=== PATIENT | male | born 1965 ===

== ENCOUNTER 2020-08-18 08:26 | Inpatient (IN) | payer BC ==
[2020-08-18] MEDS ORDERED: Acetaminophen 500 MG Tab PO ONE (08:37)
[2020-08-18] MEDS ORDERED: Lactated Ringers 1,000 ML IV ONE (08:54)
[2020-08-18] MEDS ORDERED: Sodium Chloride 0.9% 10 ML Syringe FLUSH PRN (08:54)
[2020-08-18] MEDS ORDERED: Sodium Chloride 0.9% 2.5 ML Syringe FLUSH PRN (08:54)
[2020-08-18 09:20] LABS: BLOOD UREA NITROGEN,BUN 33 mg/dL (7.0-18.0); CARBON DIOXIDE,CO2 22.5 mmol/L (21.0-32.0); CHLORIDE,CL 102 mmol/L (98-107); GLUCOSE RANDOM 128 mg/dL (74-106); POTASSIUM,K 3.7 mmol/L (3.5-5.1); SODIUM,NA 137 mmol/L (136-148)
--- NOTE | 2020-08-18 09:29 | CR ---
INDICATION: Fever, hypoxia. COMPARISON: none TECHNIQUE: Portable chest performed at 9:13 a.m. FINDINGS: The lungs are clear. The heart, mediastinum and pulmonary vessels are of normal size. There is no evidence of pleural fluid. IMPRESSION: No pneumonia. Dictated by Liam Jose MD @ Aug 18 2020 9:27AM Signed by Dr. Liam Jose @ Aug 18 2020 9:28AM
[2020-08-18 10:12] LABS: CORONAVIRUS COVID-19 NAA NEGATIVE (NEGATIVE)
[2020-08-18] MEDS ORDERED: Piperacillin/Tazobactam 4.5 GM in Sodium Chloride 0.9% 100 ML IV ONE (10:40)
[2020-08-18] MEDS ORDERED: VANCOmycin 2 GM/400 ML 2 GM in Premix Bag 1 BAG IV STA (10:40)
[2020-08-18] MEDS ORDERED: Sodium Chloride 0.9% 1,000 ML IV ONE (10:40)
[2020-08-18 10:52] LABS: INFLUENZA A NAA NEGATIVE (NEGATIVE); INFLUENZA B NAA NEGATIVE (NEGATIVE)
[2020-08-18] MEDS ORDERED: Iopamidol 755 MG/ML 500 ML Multipack Bottle IVPUSH STA (12:25)
--- NOTE | 2020-08-18 14:28 | CT ---
INDICATION: Chest pain. Elevated D-dimer. TECHNIQUE: CT chest PE was acquired with 100 cc Isovue 370 IV contrast. COMPARISON: None. FINDINGS: Heart and vasculature: Contrast enhancement of the pulmonary arterial tree is suboptimal and essentially nondiagnostic for pulmonary embolism, this may be the result of body habitus. No obvious large or central pulmonary embolism. Heart size is normal. Thoracic aorta and pulmonary artery are normal in caliber. Lungs and pleural: No suspicious nodules or infiltrates. No pleural effusions, pleural thickening, or pneumothorax. Lymph nodes/mediastinum: No mediastinal, hilar, or axillary adenopathy. Thyroid gland is normal. Chest wall: No masses. Upper abdomen: Normal. Bones: Unremarkable for age. IMPRESSION: The exam is nondiagnostic for pulmonary embolism secondary to a poor contrast bolus in the pulmonary arterial tree. No apparent larger central pulmonary embolism. Otherwise unremarkable CT of the chest. Lungs are clear. No other finding to explain chest pain. Please note that all CT scans at this facility use dose modulation, iterative reconstruction, and/or weight-based dosing when appropriate to reduce radiation dose to as low as reasonably achievable. Dictated by Modesto Liz MD @ Aug 18 2020 2:13PM Signed by Dr. Modesto Liz @ Aug 18 2020 2:25PM
[2020-08-18] MEDS ORDERED: Morphine 10 MG/ML Syringe IVPUSH PRN (15:27)
[2020-08-18] MEDS ORDERED: Albuterol/Ipratropium 3.0-0.5 MG/3 ML Neb Soln NEB PRN (15:27)
[2020-08-18] MEDS ORDERED: Ondansetron 4 MG/2 ML SDV IVPUSH PRN (15:27)
--- NOTE | 2020-08-18 15:52 | EDM.PDOC ---
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 He states that for the last 2 days he has been experiencing chills and shakes lasting approximately 30 minutes and then when it eases up that he starts to get sweats. He states he is feeling fatigued. He states that he has had 4 episodes of vomiting which was nonbloody nonbilious but denies any abdominal pain, back pain. He states that he also has a mild headache which is diffuse not associated with any blurry vision, diplopia, numbness, tingling, weakness. He states that he is also had significant amount of muscle cramps. He rates his headache as 2 out of 10 without any radiation. He denies any aggravating or relieving factors. He denies any sick contacts. He states that he took DayQuil yesterday and Tylenol last night but he still feels feverish and cold. He denies any cough, runny nose, congestion, shortness of breath, chest pain, abdominal pain. He states that he does have some occasional dysuria and he has had a change in color of his urine to dark yellow. He denies any decreased urination. He denies any Covid exposure but has not had his vaccine yet. He states that he is mainly concerned because he had similar symptoms in 2004 when he was diagnosed with Petra syndrome where he ended up with rhabdomyolysis and CKD/end-stage renal disease requiring temporary dialysis. He denies any history of CAD or CHF. He states that he does not have any lower extremity edema. He states that he did have a surgery in May for a shoulder surgery but denies any recent travel or prior history of DVT or PE. REVIEW OF SYSTEMS: Constitutional: Positive for fever and chills Eyes: Denies eye pain Ears, Nose, Mouth, & Throat: Denies earache, runny nose, sore throat Cardiovascular: Denies chest pain Respiratory: Denies shortness of breath Gastrointestinal: Positive for vomiting. Denies nausea, diarrhea, hematochezia, melena, hematemesis, bilious emesis, abdominal pain Genitourinary: Positive for dysuria. Denies hematuria, penile discharge, testicular pain Skin:Denies a rash MSK: Denies joint pain Neurological: Positive for headache. Denies blurred vision, double vision, numbness, tingling, weakness Psychiatric: Denies depression PAST MEDICAL HISTORY: As per history of present illness and as reviewed below otherwise noncontributory. SURGICAL HISTORY: As per history of present illness and as reviewed below otherwise noncontributory. SOCIAL HISTORY: As per history of present illness and as reviewed below otherwise noncontributory. FAMILY HISTORY: As per history of present illness and as reviewed below otherwise noncontributory. EXAMINATION OF ORGAN SYSTEMS/BODY AREAS: Constitutional: Blood pressure was 128/71, heart rate 130, respiratory rate 22 with an oxygen saturation 95% on room air. Temperature 38.8 General: Morbidly obese gentleman who does not appear to be in any acute distress Psychiatric: Appropriate mood and affect. Eyes: No scleral icterus or conjunctival erythema pupils equal round reactive to light. Extraocular movements intact. ENMT: Moist mucous membranes. No pharyngeal erythema no anterior posterior cervical lymphadenopathy Cardiovascular: Tachycardic but regular no gallops, murmurs, or rubs. Bilateral upper extremity pulses symmetric and intact. No peripheral edema. No JVD. Respiratory: Lungs clear to auscultation bilaterally. No wheezes, rales, or rhonchi. Gastrointestinal: Soft, non-tender, non-distended. Normoactive bowel sounds Genitourinary: No suprapubic tenderness Musculoskeletal: Normal range of motion. Skin: No lesions or abrasions. Neurological: AOx4. CN grossly intact. Stregth 5/5 in bilateral upper and lower extremity. Sensation is intact bilaterally in upper and lower extremity. Gait appears normal. MEDICAL DECISION MAKING AND COURSE IN THE ED WITH INTERPRETATION/REVIEW OF DIAGNOSTIC STUDIES: This is a 54-year-old man with a past medical history of morbid obesity and Petra syndrome who comes to the emergency department with fever and chills with episodes of vomiting and possibly some dysuria who is febrile, tachycardic and borderline hypoxic. At this time given his consolation of symptoms I am unsure if this is a bacterial cause. We will provide the patient with 2 L of lactated Ringer's bolus. I do not believe the patient requires 30 cc/kg at this time given the patient weighs 165 kg and given that his systolic blood pressure is greater then 90. We will reevaluate after lactic acid draw. Will obtain CBC, CMP, CPK, and urinalysis. Will also obtain a lactic acid and a Covid and influenza swab. Differential at this time includes pneumonia, urinary tract infection. EKG was obtained which did not reveal any acute signs of ischemia. Given that the patient has had a recent surgery, is tachycardic and borderline hypoxic we will obtain a D-dimer for further evaluation for pulmonary embolism. This is unlikely given his fever however it does warrant work-up at this time. Laboratory: CBC reveals thrombocytopenia at 99 with neutrophilic predominance without any leukocytosis. D-dimer is elevated at 2.71. Lactic acid is 1.3. CMP reveals elevated BUN at 33 and creatinine of 1.7. Unsure if this is acute kidney injury as we have no prior renal function test. Patient is hyperglycemic at 128, hypomagnesemia about 1.5 and an elevated total bilirubin at 2.0 without a transaminitis. CPK is 145. Troponin is negative. BNP is negative. Covid, influenza negative. Time: 0908 Twelve-lead EKG interpreted by myself. Sinus tachycardia at a rate of 114 beats per minute. Normal axis. [place] interval is 147 ms. QRS duration is [address] segments are normal without elevations or depressions. No T wave inversions no Q waves present. Hypertrophy not noted. No prior EKGs in our system. . Interpretation: Sinus tachycardia The radiological images were viewed by myself along with reading the report from the radiologist. Chest x-ray does not reveal any acute cardiopulmonary process On reevaluation the patient's tachycardia had improved however the patient's blood pressure did drop to 97/55. At this time given the fever and tachycardia I did start the patient empirically on Zosyn and vancomycin for sepsis for unknown source. We did send blood cultures and will obtain a urine culture after patient urinates. We were still waiting on urinalysis at this time. There is no need for repeat lactic acid and at this time 30 cc/kg is not indicated. We will provide the patient an additional bolus of 1 L of normal saline. I did discuss with patient that given his elevated D-dimer I would like to obtain a CT PE. He was amenable to this plan. The radiological images were viewed by myself along with reading the report from the radiologist. CT angiogram was nondiagnostic for small pulmonary embolism however there was no large central pulmonary embolism. Otherwise the angiogram was negative. Urinalysis was a clean catch and was moderate for leukocyte esterase, negative for nitrites, and large for blood. Trace ketone interpretation: Positive After imaging I did discuss the results with the patient. I discussed that I would like to admit him to the hospital for continued treatment. He was amenable to this plan. I contacted Dr. Ochoa and she accepted the patient for admission. DISPOSITION: Patient was admitted to the hospital in stable condition CONDITION: Fair PROCEDURES: None FINAL IMPRESSION(S)/DIAGNOSES: 1. Acute sepsis secondary to urinary tract infection 2. Acute tachycardia likely secondary #1 3. Acute kidney injury Neymar Jean Baptiste M.D. - Related Data Allergies Allergy/AdvReac Type Severity Reaction Status Date / Time No Known Allergies Allergy Verified 08/18/20 09:08 Past Medical History Other Neuro History: McArdles Disease causing rhabdomyolysis. - Infectious Disease History Infectious Disease History: Reports: None - Past Surgical History Musculoskeletal Surgical History: Reports: Hip Replacement, Shoulder Surgery Other Musculoskeletal Surgeries/Procedures:: L shoulder. R hip. Social & Family History - Tobacco Use Tobacco Use Status *Q: Unknown Ever Used Tobacco - Recreational Drug Use Recreational Drug Use: No ED ROS GENERAL - Review of Systems Review Of Systems: See Below ED EXAM, GENERAL - Physical Exam Exam: See Below Course - Vital Signs Last Recorded V/S: Last Vital Signs Temp 37.8 C 08/18/20 15:02 Pulse 108 H 08/18/20 15:28 Resp 16 08/18/20 15:28 BP 122/83 08/18/20 15:28 Pulse Ox 95 08/18/20 15:28 - Orders/Labs/Meds Orders: Active Orders 24 hr Category Date Time Status Admission Status [Patient Status] [ADT] Stat ADT 08/18/20 15:05 Active Cardiac Monitoring [RC] . DIRECTED Care 08/18/20 08:55 Active Cardiac Monitoring [RC] . DIRECTED Care 08/18/20 15:05 Active EKG Documentation Completion [RC] STAT Care 08/18/20 08:55 Active CULTURE BLOOD [BC] Stat Lab 08/18/20 08:45 Received CULTURE BLOOD [BC] Stat Lab 08/18/20 10:53 Received CULTURE URINE [RM] Stat Lab 08/18/20 10:08 Received Sodium Chloride 0.9% [Saline Flush] Med 08/18/20 08:54 Active 10 ml FLUSH ASDIRECTED PRN Sodium Chloride 0.9% [Saline Flush] Med 08/18/20 08:54 Active 2.5 ml FLUSH ASDIRECTED PRN Blood Culture x2 Reflex Set [OM.PC] Stat Oth 08/18/20 10:40 Ordered Isolation [COMM] Routine Oth 08/18/20 10:45 Active Saline Lock Insert [OM.PC] Stat Oth 08/18/20 08:55 Ordered Medication Orders Albuterol/Ipratropium (Albuterol/Ipratropium 3.0-0.5 Mg/3 Ml Neb Soln) 3 ml NEB Q4HRRT PRN PRN Reason: Shortness Of Breath/wheezing Pantoprazole Sodium 40 mg/ (Sodium Chloride) 10 mls @ 300 mls/hr IV DAILY WILLIAM Lactated Ringer's (Ringers, Lactated) 1,000 mls @ 150 mls/hr IV ASDIRECTED WILLIAM Piperacillin Sod/Tazobactam (Sod 3.375 gm/ Sodium Chloride) 50 mls @ 100 mls/hr IV Q8H WILLIAM Vancomycin HCl 1.75 gm/ Premix 350 mls @ 175 mls/hr IV Q12H WILLIAM Morphine Sulfate (Morphine 10 Mg/Ml Syringe) 1 mg IVPUSH Q4H PRN PRN Reason: Pain (severe 7-10) Stop: 08/19/20 15:28 Ondansetron HCl (Ondansetron 4 Mg/2 Ml Sdv) 4 mg IVPUSH Q4H PRN PRN Reason: Nausea/Vomiting Sodium Chloride (Sodium Chloride 0.9% 10 Ml Syringe) 10 ml FLUSH ASDIRECTED PRN PRN Reason: Keep Vein Open Last Admin: 08/18/20 09:10 Dose: 10 ml Documented by: [id number] Sodium Chloride (Sodium Chloride 0.9% 2.5 Ml Syringe) 2.5 ml FLUSH ASDIRECTED PRN PRN Reason: Keep Vein Open Last Admin: 08/18/20 09:10 Dose: 2.5 ml Documented by: [id number] Vancomycin HCl (Pharmacy To Dose - Vancomycin) 1 dose .XX ASDIRECTED [facility] Labs: Laboratory Tests 08/18/20 08/18/20 08/18/20 Range/Units 08:45 08:45 08:45 WBC 10.20 (4.0-11.0) K/uL RBC 5.15 (4.50-5.90) M/uL Hgb 16.0 (13.0-17.0) g/dL Hct 45.7 (38.0-50.0) % MCV 88.7 (80.0-98.0) fL MCH 31.1 (27.0-32.0) pg MCHC 35.0 (31.0-37.0) g/dL RDW Std Deviation 45.1 (28.0-62.0) fl RDW Coeff of Macario 14 (11.0-15.0) % Plt Count 99 L (150-400) K/uL MPV 11.50 (7.40-12.00) fL Neut % (Auto) 91.8 H (48.0-80.0) % Lymph % (Auto) 2.6 L (16.0-40.0) % [place] % (Auto) 5.3 (0.0-15.0) % Eos % (Auto) 0.2 (0.0-7.0) % Baso % (Auto) 0.1 (0.0-1.5) % Neut # (Auto) 9.4 H (1.4-5.7) K/uL Lymph # (Auto) 0.3 L (0.6-2.4) K/uL [place] # (Auto) 0.5 (0.0-0.8) K/uL Eos # (Auto) 0.0 (0.0-0.7) K/uL Baso # (Auto) 0.0 (0.0-0.1) K/uL Nucleated RBC % 0.0 /100WBC Nucleated RBCs # 0 K/uL D-Dimer, Quantitative (0.0-0.50) mg/L FEU Lactate 1.3 (0.20-2.00) mmol/L Sodium 137 (136-148) mmol/L Potassium 3.7 (3.5-5.1) mmol/L Chloride 102 (98-107) mmol/L Carbon Dioxide 22.5 (21.0-32.0) mmol/L BUN 33 H (7.0-18.0) mg/dL Creatinine 1.7 H (0.8-1.3) mg/dL Est Cr Clr Drug Dosing 58.43 mL/min Estimated GFR (MDRD) 42.4 ml/min Glucose 128 H (74-106) mg/dL Calcium 9.1 (8.5-10.1) mg/dL Magnesium 1.5 L (1.8-2.4) mg/dL Total Bilirubin 2.0 H (0.2-1.0) mg/dL AST 17 (15-37) IU/L ALT 24 (14-63) IU/L Alkaline Phosphatase 64 (46-116) U/L Creatine Kinase 145 (26-308) U/L Troponin I < 0.050 (0.000-0.056) ng/mL B-Natriuretic Peptide (<100) PG/ML Total Protein 7.3 (6.4-8.2) g/dL Albumin 3.5 (3.4-5.0) g/dL Globulin 3.8 (2.6-4.0) g/dL Albumin/Globulin Ratio 0.9 (0.9-1.6) Urine Color Urine Appearance Urine pH (5.0-8.0) Ur Specific [place] (1.001-1.035) Urine Protein (NEGATIVE) mg/dL Urine Glucose (UA) (NEGATIVE) mg/dL Urine Ketones (NEGATIVE) mg/dL Urine Occult Blood (NEGATIVE) Urine Nitrite (NEGATIVE) Urine Bilirubin (NEGATIVE) Urine Ictotest Urine Urobilinogen (<2.0) EU/dL Ur Leukocyte Esterase (NEGATIVE) Urine RBC (0-2/HPF) Urine WBC (0-5/HPF) Ur Epithelial Cells (NONE-FEW) Urine Bacteria (NEGATIVE) Influenza Type A RNA (NEGATIVE) Influenza Type B RNA (NEGATIVE) SARS-CoV-2 RNA (MEENA) (NEGATIVE) 08/18/20 08/18/20 08/18/20 Range/Units 08:45 08:45 09:05 WBC (4.0-11.0) K/uL RBC (4.50-5.90) M/uL Hgb (13.0-17.0) g/dL Hct (38.0-50.0) % MCV (80.0-98.0) fL MCH (27.0-32.0) pg MCHC (31.0-37.0) g/dL RDW Std Deviation (28.0-62.0) fl RDW Coeff of Macario (11.0-15.0) % Plt Count (150-400) K/uL MPV (7.40-12.00) fL Neut % (Auto) (48.0-80.0) % Lymph % (Auto) (16.0-40.0) % [place] % (Auto) (0.0-15.0) % Eos % (Auto) (0.0-7.0) % Baso % (Auto) (0.0-1.5) % Neut # (Auto) (1.4-5.7) K/uL Lymph # (Auto) (0.6-2.4) K/uL [place] # (Auto) (0.0-0.8) K/uL Eos # (Auto) (0.0-0.7) K/uL Baso # (Auto) (0.0-0.1) K/uL Nucleated RBC % /100WBC Nucleated RBCs # K/uL D-Dimer, Quantitative 2.71 H (0.0-0.50) mg/L FEU Lactate (0.20-2.00) mmol/L Sodium (136-148) mmol/L Potassium (3.5-5.1) mmol/L Chloride (98-107) mmol/L Carbon Dioxide (21.0-32.0) mmol/L BUN (7.0-18.0) mg/dL Creatinine (0.8-1.3) mg/dL Est Cr Clr Drug Dosing mL/min Estimated GFR (MDRD) ml/min Glucose (74-106) mg/dL Calcium (8.5-10.1) mg/dL Magnesium (1.8-2.4) mg/dL Total Bilirubin (0.2-1.0) mg/dL AST (15-37) IU/L ALT (14-63) IU/L Alkaline Phosphatase (46-116) U/L Creatine Kinase (26-308) U/L Troponin I (0.000-0.056) ng/mL B-Natriuretic Peptide 24 (<100) PG/ML Total Protein (6.4-8.2) g/dL Albumin (3.4-5.0) g/dL Globulin (2.6-4.0) g/dL Albumin/Globulin Ratio (0.9-1.6) Urine Color Urine Appearance Urine pH (5.0-8.0) Ur Specific [place] (1.001-1.035) Urine Protein (NEGATIVE) mg/dL Urine Glucose (UA) (NEGATIVE) mg/dL Urine Ketones (NEGATIVE) mg/dL Urine Occult Blood (NEGATIVE) Urine Nitrite (NEGATIVE) Urine Bilirubin (NEGATIVE) Urine Ictotest Urine Urobilinogen (<2.0) EU/dL Ur Leukocyte Esterase (NEGATIVE) Urine RBC (0-2/HPF) Urine WBC (0-5/HPF) Ur Epithelial Cells (NONE-FEW) Urine Bacteria (NEGATIVE) Influenza Type A RNA NEGATIVE (NEGATIVE) Influenza Type B RNA NEGATIVE (NEGATIVE) SARS-CoV-2 RNA (MEENA) NEGATIVE (NEGATIVE) 08/18/20 Range/Units 10:08 WBC (4.0-11.0) K/uL RBC (4.50-5.90) M/uL Hgb (13.0-17.0) g/dL Hct (38.0-50.0) % MCV (80.0-98.0) fL MCH (27.0-32.0) pg MCHC (31.0-37.0) g/dL RDW Std Deviation (28.0-62.0) fl RDW Coeff of Macario (11.0-15.0) % Plt Count (150-400) K/uL MPV (7.40-12.00) fL Neut % (Auto) (48.0-80.0) % Lymph % (Auto) (16.0-40.0) % [place] % (Auto) (0.0-15.0) % Eos % (Auto) (0.0-7.0) % Baso % (Auto) (0.0-1.5) % Neut # (Auto) (1.4-5.7) K/uL Lymph # (Auto) (0.6-2.4) K/uL [place] # (Auto) (0.0-0.8) K/uL Eos # (Auto) (0.0-0.7) K/uL Baso # (Auto) (0.0-0.1) K/uL Nucleated RBC % /100WBC Nucleated RBCs # K/uL D-Dimer, Quantitative (0.0-0.50) mg/L FEU Lactate (0.20-2.00) mmol/L Sodium (136-148) mmol/L Potassium (3.5-5.1) mmol/L Chloride (98-107) mmol/L Carbon Dioxide (21.0-32.0) mmol/L BUN (7.0-18.0) mg/dL Creatinine (0.8-1.3) mg/dL Est Cr Clr Drug Dosing mL/min Estimated GFR (MDRD) ml/min Glucose (74-106) mg/dL Calcium (8.5-10.1) mg/dL Magnesium (1.8-2.4) mg/dL Total Bilirubin (0.2-1.0) mg/dL AST (15-37) IU/L ALT (14-63) IU/L Alkaline Phosphatase (46-116) U/L Creatine Kinase (26-308) U/L Troponin I (0.000-0.056) ng/mL B-Natriuretic Peptide (<100) PG/ML Total Protein (6.4-8.2) g/dL Albumin (3.4-5.0) g/dL Globulin (2.6-4.0) g/dL Albumin/Globulin Ratio (0.9-1.6) Urine Color YELLOW Urine Appearance CLOUDY Urine pH 5.5 (5.0-8.0) Ur Specific [place] >= 1.030 (1.001-1.035) Urine Protein 100 H (NEGATIVE) mg/dL Urine Glucose (UA) NEGATIVE (NEGATIVE) mg/dL Urine Ketones TRACE H (NEGATIVE) mg/dL Urine Occult Blood LARGE H (NEGATIVE) Urine Nitrite NEGATIVE (NEGATIVE) Urine Bilirubin SMALL H (NEGATIVE) Urine Ictotest NEGATIVE Urine Urobilinogen 0.2 (<2.0) EU/dL Ur Leukocyte Esterase MODERATE H (NEGATIVE) Urine RBC 10-12 (0-2/HPF) Urine WBC TO NUMEROU (0-5/HPF) Ur Epithelial Cells FEW (NONE-FEW) Urine Bacteria 2+ H (NEGATIVE) Influenza Type A RNA (NEGATIVE) Influenza Type B RNA (NEGATIVE) SARS-CoV-2 RNA (MEENA) (NEGATIVE) Meds: Medications Generic Name Dose Route Start Last Admin Trade Name Frejonathan PRN Reason Stop Dose Admin Albuterol/Ipratropium 3 ml 08/18/20 15:27 Albuterol/Ipratropium 3.0-0.5 Mg/3 Ml Neb Soln NEB Q4HRRT PRN Shortness Of Breath/wheezing Pantoprazole Sodium 40 mg/ 10 mls @ 300 mls/hr 08/19/20 09:00 Sodium Chloride IV DAILY WILLIAM Lactated Ringer's 1,000 mls @ 150 mls/hr 08/18/20 15:30 Ringers, Lactated IV ASDIRECTED WILLIAM Piperacillin Sod/Tazobactam 50 mls @ 100 mls/hr 08/18/20 15:45 Sod 3.375 gm/ Sodium Chloride IV Q8H WILLIAM Vancomycin HCl 1.75 gm/ Premix 350 mls @ 175 mls/hr 08/19/20 00:00 IV Q12H WILLIAM Morphine Sulfate 1 mg 08/18/20 15:27 Morphine 10 Mg/Ml Syringe IVPUSH 08/19/20 15:28 Q4H PRN Pain (severe 7-10) Ondansetron HCl 4 mg 08/18/20 15:27 Ondansetron 4 Mg/2 Ml Sdv IVPUSH Q4H PRN Nausea/Vomiting Sodium Chloride 10 ml 08/18/20 08:54 08/18/20 09:10 Sodium Chloride 0.9% 10 Ml Syringe FLUSH 10 ml ASDIRECTED PRN Administration Keep Vein Open Sodium Chloride 2.5 ml 08/18/20 08:54 08/18/20 09:10 Sodium Chloride 0.9% 2.5 Ml Syringe FLUSH 2.5 ml ASDIRECTED PRN Administration Keep Vein Open Vancomycin HCl 1 dose 08/18/20 15:45 Pharmacy To Dose - Vancomycin .XX ASDIRECTED WILLIAM Discontinued Medications Generic Name Dose Route Start Last Admin Trade Name Frejonathan PRN Reason Stop Dose Admin Acetaminophen 1,000 mg 08/18/20 08:37 08/18/20 08:43 Acetaminophen 500 Mg Tab PO 08/18/20 08:38 1,000 mg ONETIME ONE Administration Lactated Ringer's 1,000 mls @ 2,000 mls/hr 08/18/20 08:54 08/18/20 09:10 Ringers, Lactated IV 08/18/20 09:23 2,000 mls/hr .BOLUS ONE Administration Sodium Chloride 1,000 mls @ 999 mls/hr 08/18/20 10:40 08/18/20 10:58 Normal Saline IV 08/18/20 11:40 999 mls/hr STAT ONE Administration Piperacillin Sod/Tazobactam 100 mls @ 100 mls/hr 08/18/20 10:40 08/18/20 10:58 Sod 4.5 gm/ Sodium Chloride IV 08/18/20 11:39 100 mls/hr ONETIME ONE Administration Vancomycin HCl 2 gm/ Premix 400 mls @ 200 mls/hr 08/18/20 10:40 08/18/20 11:56 IV 08/18/20 12:39 200 mls/hr NOW STA Administration Iopamidol 100 ml 08/18/20 12:25 08/18/20 14:08 Iopamidol 755 Mg/Ml 500 Ml Multipack Bottle IVPUSH 08/18/20 12:26 100 ml ONETIME STA Administration Departure - Departure Time of Disposition: 15:15 Disposition: Admitted As Inpatient 67 Condition: Fair Clinical Impression: UTI (urinary tract infection) - Discharge Information Sepsis Event Note (ED) - Evaluation Sepsis Screening Result: Possible Sepsis Risk - Focused Exam Vital Signs: Vital Signs Temp Temp Pulse Resp BP Pulse Ox 08/18/20 15:02 37.8 C 08/18/20 14:21 98 17 114/72 96 08/18/20 14:06 98 17 116/74 97 08/18/20 13:52 103 H 115/66 97 08/18/20 12:12 107 H 17 117/71 98 08/18/20 11:57 102 H 118/78 98 08/18/20 11:27 104 H 17 107/66 97 08/18/20 10:40 105 H 97/55 L 95 08/18/20 10:12 109 H 96/63 93 L 08/18/20 09:57 116 H 18 109/56 L 93 L 08/18/20 09:52 38.3 C H 08/18/20 09:42 109 H 105/52 L 93 L 08/18/20 09:13 38.3 C H 08/18/20 09:12 113 H 123/69 93 L 08/18/20 08:40 38.8 C H 130 H 22 H 128/71 95 - My Orders Last 24 Hours: My Active Orders 08/18/20 08:54 Sodium Chloride 0.9% [Saline Flush] 10 ml FLUSH ASDIRECTED PRN Sodium Chloride 0.9% [Saline Flush] 2.5 ml FLUSH ASDIRECTED PRN 08/18/20 08:55 Cardiac Monitoring [RC] . DIRECTED EKG Documentation Completion [RC] STAT Saline Lock Insert [OM.PC] Stat 08/18/20 15:05 Admission Status [Patient Status] [ADT] Stat Cardiac Monitoring [RC] . DIRECTED - Assessment/Plan Last 24 Hours: My Active Orders 08/18/20 08:54 Sodium Chloride 0.9% [Saline Flush] 10 ml FLUSH ASDIRECTED PRN Sodium Chloride 0.9% [Saline Flush] 2.5 ml FLUSH ASDIRECTED PRN 08/18/20 08:55 Cardiac Monitoring [RC] . DIRECTED EKG Documentation Completion [RC] STAT Saline Lock Insert [OM.PC] Stat 08/18/20 15:05 Admission Status [Patient Status] [ADT] Stat Cardiac Monitoring [RC] . DIRECTED
[2020-08-18] MEDS: Lactated Ringers 1,000 ML IV SCH ×2 (16:03→22:48)
[2020-08-18] MEDS: Piperacillin/Tazobactam 3.375 GM in Sodium Chloride 0.9% 50 ML IV SCH (16:03)
--- NOTE | 2020-08-18 18:38 | PCM.HP.2 ---
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 He states that for the last 2 days he has been experiencing c hills and shakes lasting approximately 30 minutes following by sweating. Patient has had 4 episodes of vomiting which was nonbloody nonbilious but denies any abdominal pain, back pain. He states that he also has a mild headache which is diffuse not associated with any blurry vision, diplopia, numbness, tingling, weakness. He states that he is also had significant amount of muscle cramps. He denies any sick contacts. He states that he took DayQuil yesterday and Tylenol with minimal relief last night. He denies any cough, runny nose, congestion, shortness of breath, chest pain, abdominal pain. He states that he does have some occasional dysuria and he has had a change in color of his urine to dark yellow. He denies any decreased urination. He denies any Covid exposure but has not had his vaccine yet. He denies any history of CAD or CHF. Lab work in ER: CBC reveals thrombocytopenia at 99 with neutrophilic predominance without any leukocytosis. D-dimer is elevated at 2.71. Lactic acid is 1.3. CMP reveals elevated BUN at 33 and creatinine of 1.7. Unsure if this is acute kidney injury as we have no prior renal function test. Patient is hyperglycemic at 128, hypomagnesemia about 1.5 and an elevated total bilirubin at 2.0 without a transaminitis. CPK is 145. Troponin is negative. BNP is negative. Covid, influenza negative. Twelve-lead EKG showed Tachycardia Chest x-ray does not reveal any acute cardiopulmonary process. CT angiogram was nondiagnostic for small pulmonary embolism however there was no large central pulmonary embolism. Otherwise the angiogram was negative. Patients BP dropped to 97/55 intermittently so received 2lts of LR, and board spectrum antibiotics, patients BP did respond well. Patient was admitted to the hospital for further care. 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 Oncologic (Cancer) History: Reports: Other (See Below) Other Oncologic History: testicular - Infectious Disease History Infectious Disease History: Reports: None - Past Surgical History Musculoskeletal Surgical History: Reports: Hip Replacement, Shoulder Surgery Other Musculoskeletal Surgeries/Procedures:: L shoulder. R hip. Social & Family History - Family History Cardiac: Reports: CAD, Hypertension GI: Reports: None - Tobacco Use Tobacco Use Status *Q: Never Tobacco User Second Hand Smoke Exposure: No - Caffeine Use Caffeine Use: Reports: Coffee, Soda Caffeine Use Comment: daily - Recreational Drug Use Recreational Drug Use: No H&P Review of Systems - Review of Systems: Review Of Systems: See Below General: Reports: Fever, Chills, Malaise, Weakness, Fatigue, Night Sweats, Diaphoresis, Decreased Appetite HEENT: Denies: Contact Lenses, Dysphasia, Ear Pain Pulmonary: Denies: Shortness of Breath, Wheezing, Pleuritic Chest Pain, Cough Cardiovascular: Denies: Chest Pain, Dyspnea on Exertion Gastrointestinal: Reports: Anorexia, Decreased Appetite, Nausea, Vomiting. Denies: Abdominal Pain, Black Stool, Bloody Stool, Constipation, Melena, Mucous in Stool Genitourinary: Reports: Dysuria, Burning. Denies: Frequency, Pain, Urgency, Incontinence, Hematuria, Discharge, Retention, Flank Pain Musculoskeletal: Denies: Shoulder Pain, Arm Pain, Hand Pain, Leg Pain, Foot Pain, Joint Pain Skin: Denies: Cyanosis, Jaundice, Mottled Psychiatric: Denies: Confusion, Depression, Mood Lability Neurological: Denies: Confusion, Dizziness, Headache Hematologic/Lymphatic: Denies: Anemia, Easy Bleeding, Easy Bruising Exam - Exam Exam: See Below - Vital Signs Vital Signs: Last Vital Signs Temp 37.7 C 08/18/20 15:27 Pulse 108 H 08/18/20 15:28 Resp 16 08/18/20 15:28 BP 122/83 08/18/20 15:28 Pulse Ox 95 08/18/20 15:28 Weight: 164.3 kg - Exam General: Alert, Oriented, Cooperative Neck: Supple, Trachea Midline Lungs: Clear to Auscultation, Normal Respiratory Effort Cardiovascular: Regular Rate, Regular Rhythm, Normal S1, Normal S2 GI/Abdominal Exam: Normal Bowel Sounds, Soft, Non-Tender, Distended. No: Hepatomegaly, Splenomegaly - Patient Data Lab Results Last 24 hrs: Laboratory Results - last 24 hr 08/18/20 08/18/20 08/18/20 Range/Units 08:45 08:45 08:45 WBC 10.20 (4.0-11.0) K/uL RBC 5.15 (4.50-5.90) M/uL Hgb 16.0 (13.0-17.0) g/dL Hct 45.7 (38.0-50.0) % MCV 88.7 (80.0-98.0) fL MCH 31.1 (27.0-32.0) pg MCHC 35.0 (31.0-37.0) g/dL RDW Std Deviation 45.1 (28.0-62.0) fl RDW Coeff of Macario 14 (11.0-15.0) % Plt Count 99 L (150-400) K/uL MPV 11.50 (7.40-12.00) fL Neut % (Auto) 91.8 H (48.0-80.0) % Lymph % (Auto) 2.6 L (16.0-40.0) % [place] % (Auto) 5.3 (0.0-15.0) % Eos % (Auto) 0.2 (0.0-7.0) % Baso % (Auto) 0.1 (0.0-1.5) % Neut # (Auto) 9.4 H (1.4-5.7) K/uL Lymph # (Auto) 0.3 L (0.6-2.4) K/uL [place] # (Auto) 0.5 (0.0-0.8) K/uL Eos # (Auto) 0.0 (0.0-0.7) K/uL Baso # (Auto) 0.0 (0.0-0.1) K/uL Nucleated RBC % 0.0 /100WBC Nucleated RBCs # 0 K/uL D-Dimer, Quantitative (0.0-0.50) mg/L FEU Lactate 1.3 (0.20-2.00) mmol/L Sodium 137 (136-148) mmol/L Potassium 3.7 (3.5-5.1) mmol/L Chloride 102 (98-107) mmol/L Carbon Dioxide 22.5 (21.0-32.0) mmol/L BUN 33 H (7.0-18.0) mg/dL Creatinine 1.7 H (0.8-1.3) mg/dL Est Cr Clr Drug Dosing 58.43 mL/min Estimated GFR (MDRD) 42.4 ml/min Glucose 128 H (74-106) mg/dL Calcium 9.1 (8.5-10.1) mg/dL Magnesium 1.5 L (1.8-2.4) mg/dL Total Bilirubin 2.0 H (0.2-1.0) mg/dL AST 17 (15-37) IU/L ALT 24 (14-63) IU/L Alkaline Phosphatase 64 (46-116) U/L Creatine Kinase 145 (26-308) U/L Troponin I < 0.050 (0.000-0.056) ng/mL B-Natriuretic Peptide (<100) PG/ML Total Protein 7.3 (6.4-8.2) g/dL Albumin 3.5 (3.4-5.0) g/dL Globulin 3.8 (2.6-4.0) g/dL Albumin/Globulin Ratio 0.9 (0.9-1.6) Urine Color Urine Appearance Urine pH (5.0-8.0) Ur Specific [place] (1.001-1.035) Urine Protein (NEGATIVE) mg/dL Urine Glucose (UA) (NEGATIVE) mg/dL Urine Ketones (NEGATIVE) mg/dL Urine Occult Blood (NEGATIVE) Urine Nitrite (NEGATIVE) Urine Bilirubin (NEGATIVE) Urine Ictotest Urine Urobilinogen (<2.0) EU/dL Ur Leukocyte Esterase (NEGATIVE) Urine RBC (0-2/HPF) Urine WBC (0-5/HPF) Ur Epithelial Cells (NONE-FEW) Urine Bacteria (NEGATIVE) Influenza Type A RNA (NEGATIVE) Influenza Type B RNA (NEGATIVE) SARS-CoV-2 RNA (MEENA) (NEGATIVE) 08/18/20 08/18/20 08/18/20 Range/Units 08:45 08:45 09:05 WBC (4.0-11.0) K/uL RBC (4.50-5.90) M/uL Hgb (13.0-17.0) g/dL Hct (38.0-50.0) % MCV (80.0-98.0) fL MCH (27.0-32.0) pg MCHC (31.0-37.0) g/dL RDW Std Deviation (28.0-62.0) fl RDW Coeff of Macario (11.0-15.0) % Plt Count (150-400) K/uL MPV (7.40-12.00) fL Neut % (Auto) (48.0-80.0) % Lymph % (Auto) (16.0-40.0) % [place] % (Auto) (0.0-15.0) % Eos % (Auto) (0.0-7.0) % Baso % (Auto) (0.0-1.5) % Neut # (Auto) (1.4-5.7) K/uL Lymph # (Auto) (0.6-2.4) K/uL [place] # (Auto) (0.0-0.8) K/uL Eos # (Auto) (0.0-0.7) K/uL Baso # (Auto) (0.0-0.1) K/uL Nucleated RBC % /100WBC Nucleated RBCs # K/uL D-Dimer, Quantitative 2.71 H (0.0-0.50) mg/L FEU Lactate (0.20-2.00) mmol/L Sodium (136-148) mmol/L Potassium (3.5-5.1) mmol/L Chloride (98-107) mmol/L Carbon Dioxide (21.0-32.0) mmol/L BUN (7.0-18.0) mg/dL Creatinine (0.8-1.3) mg/dL Est Cr Clr Drug Dosing mL/min Estimated GFR (MDRD) ml/min Glucose (74-106) mg/dL Calcium (8.5-10.1) mg/dL Magnesium (1.8-2.4) mg/dL Total Bilirubin (0.2-1.0) mg/dL AST (15-37) IU/L ALT (14-63) IU/L Alkaline Phosphatase (46-116) U/L Creatine Kinase (26-308) U/L Troponin I (0.000-0.056) ng/mL B-Natriuretic Peptide 24 (<100) PG/ML Total Protein (6.4-8.2) g/dL Albumin (3.4-5.0) g/dL Globulin (2.6-4.0) g/dL Albumin/Globulin Ratio (0.9-1.6) Urine Color Urine Appearance Urine pH (5.0-8.0) Ur Specific [place] (1.001-1.035) Urine Protein (NEGATIVE) mg/dL Urine Glucose (UA) (NEGATIVE) mg/dL Urine Ketones (NEGATIVE) mg/dL Urine Occult Blood (NEGATIVE) Urine Nitrite (NEGATIVE) Urine Bilirubin (NEGATIVE) Urine Ictotest Urine Urobilinogen (<2.0) EU/dL Ur Leukocyte Esterase (NEGATIVE) Urine RBC (0-2/HPF) Urine WBC (0-5/HPF) Ur Epithelial Cells (NONE-FEW) Urine Bacteria (NEGATIVE) Influenza Type A RNA NEGATIVE (NEGATIVE) Influenza Type B RNA NEGATIVE (NEGATIVE) SARS-CoV-2 RNA (MEENA) NEGATIVE (NEGATIVE) 08/18/20 Range/Units 10:08 WBC (4.0-11.0) K/uL RBC (4.50-5.90) M/uL Hgb (13.0-17.0) g/dL Hct (38.0-50.0) % MCV (80.0-98.0) fL MCH (27.0-32.0) pg MCHC (31.0-37.0) g/dL RDW Std Deviation (28.0-62.0) fl RDW Coeff of Macario (11.0-15.0) % Plt Count (150-400) K/uL MPV (7.40-12.00) fL Neut % (Auto) (48.0-80.0) % Lymph % (Auto) (16.0-40.0) % [place] % (Auto) (0.0-15.0) % Eos % (Auto) (0.0-7.0) % Baso % (Auto) (0.0-1.5) % Neut # (Auto) (1.4-5.7) K/uL Lymph # (Auto) (0.6-2.4) K/uL [place] # (Auto) (0.0-0.8) K/uL Eos # (Auto) (0.0-0.7) K/uL Baso # (Auto) (0.0-0.1) K/uL Nucleated RBC % /100WBC Nucleated RBCs # K/uL D-Dimer, Quantitative (0.0-0.50) mg/L FEU Lactate (0.20-2.00) mmol/L Sodium (136-148) mmol/L Potassium (3.5-5.1) mmol/L Chloride (98-107) mmol/L Carbon Dioxide (21.0-32.0) mmol/L BUN (7.0-18.0) mg/dL Creatinine (0.8-1.3) mg/dL Est Cr Clr Drug Dosing mL/min Estimated GFR (MDRD) ml/min Glucose (74-106) mg/dL Calcium (8.5-10.1) mg/dL Magnesium (1.8-2.4) mg/dL Total Bilirubin (0.2-1.0) mg/dL AST (15-37) IU/L ALT (14-63) IU/L Alkaline Phosphatase (46-116) U/L Creatine Kinase (26-308) U/L Troponin I (0.000-0.056) ng/mL B-Natriuretic Peptide (<100) PG/ML Total Protein (6.4-8.2) g/dL Albumin (3.4-5.0) g/dL Globulin (2.6-4.0) g/dL Albumin/Globulin Ratio (0.9-1.6) Urine Color YELLOW Urine Appearance CLOUDY Urine pH 5.5 (5.0-8.0) Ur Specific [place] >= 1.030 (1.001-1.035) Urine Protein 100 H (NEGATIVE) mg/dL Urine Glucose (UA) NEGATIVE (NEGATIVE) mg/dL Urine Ketones TRACE H (NEGATIVE) mg/dL Urine Occult Blood LARGE H (NEGATIVE) Urine Nitrite NEGATIVE (NEGATIVE) Urine Bilirubin SMALL H (NEGATIVE) Urine Ictotest NEGATIVE Urine Urobilinogen 0.2 (<2.0) EU/dL Ur Leukocyte Esterase MODERATE H (NEGATIVE) Urine RBC 10-12 (0-2/HPF) Urine WBC TO NUMEROU (0-5/HPF) Ur Epithelial Cells FEW (NONE-FEW) Urine Bacteria 2+ H (NEGATIVE) Influenza Type A RNA (NEGATIVE) Influenza Type B RNA (NEGATIVE) SARS-CoV-2 RNA (MEENA) (NEGATIVE) Result Diagrams: 08/18/20 08:45 08/18/20 08:45 Sepsis Event Note - Evaluation Sepsis Screening Result: Sepsis Risk - Focused Exam Vital Signs: Vital Signs Temp Temp Pulse Resp BP Pulse Ox Pulse Ox 08/18/20 15:28 108 H 16 122/83 95 08/18/20 15:27 37.7 C 115 H 16 143/78 H 96 97 08/18/20 15:02 37.8 C 08/18/20 14:21 98 17 114/72 96 08/18/20 14:06 98 17 116/74 97 08/18/20 13:52 103 H 115/66 97 08/18/20 12:12 107 H 17 117/71 98 08/18/20 11:57 102 H 118/78 98 08/18/20 11:27 104 H 17 107/66 97 08/18/20 10:40 105 H 97/55 L 95 08/18/20 10:12 109 H 96/63 93 L 08/18/20 09:57 116 H 18 109/56 L 93 L 08/18/20 09:52 38.3 C H 08/18/20 09:42 109 H 105/52 L 93 L 08/18/20 09:13 38.3 C H 08/18/20 09:12 113 H 123/69 93 L 08/18/20 08:40 38.8 C H 130 H 22 H 128/71 95 - Problem List (1) Sepsis SNOMED Code(s): 09782115 ICD Code: A41.9 - SEPSIS, UNSPECIFIED ORGANISM Status: Acute Current Visit: Yes (2) UTI (urinary tract infection) SNOMED Code(s): 17721348 ICD Code: N39.0 - URINARY TRACT INFECTION, SITE NOT SPECIFIED Status: Acute Current Visit: Yes (3) Sleep apnea SNOMED Code(s): 03112216 ICD Code: G47.30 - SLEEP APNEA, UNSPECIFIED Status: Acute Current Visit: Yes Problem List Initiated/Reviewed/Updated: Yes Orders Last 24hrs: Active Orders 24 hr Category Date Time Status Admission Status [Patient Status] [ADT] Stat ADT 08/18/20 15:05 Active Ambulate [RC] ASDIRECTED Care 08/18/20 15:27 Active Antiembolic Devices [RC] PER UNIT ROUTINE Care 08/18/20 15:28 Active Cardiac Monitoring [RC] . DIRECTED Care 08/18/20 08:55 Active Cardiac Monitoring [RC] . DIRECTED Care 08/18/20 15:05 Active EKG Documentation Completion [RC] STAT Care 08/18/20 08:55 Active Oxygen Therapy [RC] PRN Care 08/18/20 15:27 Active RT Aerosol Therapy [RC] ASDIRECTED Care 08/18/20 15:29 Active VTE/DVT Education [RC] PER UNIT ROUTINE Care 08/18/20 15:27 Active Vital Signs [RC] Q4H Care 08/18/20 15:27 Active Regular Diet [DIET] Diet 08/18/20 Dinner Active BMP [BASIC METABOLIC PANEL,BMP] [CHEM] AM Lab 08/19/20 05:11 Ordered CBC WITH AUTO DIFF [HEME] AM Lab 08/19/20 05:11 Ordered CULTURE BLOOD [BC] Stat Lab 08/18/20 08:45 Received CULTURE BLOOD [BC] Stat Lab 08/18/20 10:53 Received CULTURE URINE [RM] Stat Lab 08/18/20 10:08 Received MAGNESIUM [CHEM] AM Lab 08/19/20 05:11 Ordered PHOSPHORUS [CHEM] AM Lab 08/19/20 05:11 Ordered VANCOMYCIN TROUGH [CHEM] Timed Lab 08/20/20 11:30 Ordered Albuterol/Ipratropium [DuoNeb 3.0-0.5 MG/3 ML] Med 08/18/20 15:27 Active 3 ml NEB Q4HRRT PRN Lactated Ringers [Ringers, Lactated] 1,000 ml Med 08/18/20 15:30 Active IV ASDIRECTED Morphine Med 08/18/20 15:27 Active 1 mg IVPUSH Q4H PRN Ondansetron [Zofran] Med 08/18/20 15:27 Active 4 mg IVPUSH Q4H PRN Pantoprazole [ProTONIX IV] 40 mg Med 08/19/20 09:00 Active Sodium Chloride 0.9% [Normal Saline] 10 ml IV DAILY Pharmacy to Dose - Vancomycin Med 08/18/20 15:45 Active 1 dose .XX ASDIRECTED Piperacillin/Tazobactam [Piperacil-Tazobact] 3.375 gm Med 08/18/20 15:45 Active Sodium Chloride 0.9% [Normal Saline] 50 ml IV Q8H Sodium Chloride 0.9% [Saline Flush] Med 08/18/20 08:54 Active 10 ml FLUSH ASDIRECTED PRN Sodium Chloride 0.9% [Saline Flush] Med 08/18/20 08:54 Active 2.5 ml FLUSH ASDIRECTED PRN VANCOmycin 1.75 GM/350 ML 1.75 gm Med 08/19/20 00:00 Active Premix Bag 1 bag IV Q12H Blood Culture x2 Reflex Set [OM.PC] Stat Ot 08/18/20 10:40 Ordered Isolation [COMM] Routine Ot 08/18/20 10:45 Active Saline Lock Insert [OM.PC] Stat Ot 08/18/20 08:55 Ordered Sequential Compression Device [OM.PC] Per Unit Routine Ot 08/18/20 15:28 Ordered Resuscitation Status Routine Resus Stat 08/18/20 15:27 Ordered Medication Orders Albuterol/Ipratropium (Albuterol/Ipratropium 3.0-0.5 Mg/3 Ml Neb Soln) 3 ml NEB Q4HRRT PRN PRN Reason: Shortness Of Breath/wheezing Pantoprazole Sodium 40 mg/ (Sodium Chloride) 10 mls @ 300 mls/hr IV DAILY WILLIAM Lactated Ringer's (Ringers, Lactated) 1,000 mls @ 150 mls/hr IV ASDIRECTED WILLIAM Last Admin: 08/18/20 16:03 Dose: 150 mls/hr Documented by: [email or web address] Piperacillin Sod/Tazobactam (Sod 3.375 gm/ Sodium Chloride) 50 mls @ 100 mls/hr IV Q8H WILLIAM Last Admin: 08/18/20 16:03 Dose: 100 mls/hr Documented by: [email or web address] Vancomycin HCl 1.75 gm/ Premix 350 mls @ 175 mls/hr IV Q12H [facility] Morphine Sulfate (Morphine 10 Mg/Ml Syringe) 1 mg IVPUSH Q4H PRN PRN Reason: Pain (severe 7-10) Stop: 08/19/20 15:28 Ondansetron HCl (Ondansetron 4 Mg/2 Ml Sdv) 4 mg IVPUSH Q4H PRN PRN Reason: Nausea/Vomiting Sodium Chloride (Sodium Chloride 0.9% 10 Ml Syringe) 10 ml FLUSH ASDIRECTED PRN PRN Reason: Keep Vein Open Last Admin: 08/18/20 09:10 Dose: 10 ml Documented by: [id number] Sodium Chloride (Sodium Chloride 0.9% 2.5 Ml Syringe) 2.5 ml FLUSH ASDIRECTED PRN PRN Reason: Keep Vein Open Last Admin: 08/18/20 09:10 Dose: 2.5 ml Documented by: [id number] Vancomycin HCl (Pharmacy To Dose - Vancomycin) 1 dose .XX ASDIRECTED [facility] Assessment/Plan Comment:: 54 y/o M admitted for sepsis secondary to UTI Abdomen is soft and non tender, no indication for CT abdomen for now cont broad spectrum antibiotics till sepsis resolved f/u on urine cultures and blood cultures cont IV fluids SCD for dvt ppx IV zofran for N/V IV PPI Tylenol for pain
[2020-08-18] MEDS: Acetaminophen 500 MG Tab PO PRN (22:31)
[2020-08-18] MEDS ORDERED: Magnesium Sulfate/Water 2 GM/50 ML BAG IV ONE (22:41)
[2020-08-19] MEDS: Piperacillin/Tazobactam 3.375 GM in Sodium Chloride 0.9% 50 ML IV SCH ×4 (00:01→18:04)
[2020-08-19] MEDS: VANCOmycin 1.75 GM/350 ML 1.75 GM in Premix Bag 1 BAG IV SCH ×2 (00:42→13:39)
[2020-08-19 07:22] LABS: CARBON DIOXIDE,CO2 24.3 mmol/L (21.0-32.0); POTASSIUM,K 3.7 mmol/L (3.5-5.1)
[2020-08-19] MEDS ORDERED: Diltiazem 25 MG/5 ML SDV IVPUSH ONE ×3 (08:15→10:45)
[2020-08-19] MEDS: Pantoprazole 40 MG in Sodium Chloride 0.9% 10 ML IV SCH (08:38)
[2020-08-19] MEDS: Lactated Ringers 1,000 ML IV SCH ×3 (09:09→20:42)
[2020-08-19] MEDS ORDERED: Magnesium Sulfate/Water 2 GM/50 ML BAG IV ONE (11:08)
[2020-08-19] MEDS ORDERED: Potassium Chloride 20 MEQ Tab.ER PO ONE (11:08)
[2020-08-19] MEDS: Diltiazem IR 30 MG Tab PO SCH ×2 (11:45→18:04)
[2020-08-19 11:49] LABS: HEMOGLOBIN A1C 5.1 %
--- NOTE | 2020-08-19 13:57 | PCM.PN ---
<Claus Rodriguez - Last Filed: 08/19/20 17:06> - General Info Date of Service: 08/19/20 Subjective Update: Patient states that he feels fine. Patient was told this morning that he was having an irregular heart rhythm with an irregular rate but patient stated that he did not feel palpitations, chest pain, dizziness, headaches, shortness of breath during these episodes. Patient also denies fever, chills, nausea, abdominal pain. - Review of Systems General: Denies: Fever, Chills Pulmonary: Denies: Shortness of Breath, Cough Cardiovascular: Denies: Chest Pain, Palpitations Gastrointestinal: Denies: Abdominal Pain, Nausea, Vomiting Neurological: Denies: Confusion, Dizziness Psychiatric: Denies: Confusion - Patient Data Vitals - Most Recent: Last Vital Signs Temp 97.4 F 08/19/20 11:45 Pulse 140 H 08/19/20 11:45 Resp 16 08/19/20 11:45 BP 106/72 08/19/20 11:45 Pulse Ox 97 08/19/20 11:45 Weight - Most Recent: 164.3 kg I&O - Last 24 Hours: Intake & Output 08/18/20 08/19/20 08/19/20 22:59 06:59 14:59 Intake Total 909 450 Balance 909 450 Lab Results Last 24 Hours: Laboratory Results - last 24 hr 08/19/20 08/19/20 08/19/20 Range/Units 06:52 06:52 06:52 WBC 6.17 (4.0-11.0) K/uL RBC 4.42 L (4.50-5.90) M/uL Hgb 13.3 (13.0-17.0) g/dL Hct 39.8 (38.0-50.0) % MCV 90.0 (80.0-98.0) fL MCH 30.1 (27.0-32.0) pg MCHC 33.4 (31.0-37.0) g/dL RDW Std Deviation 46.2 (28.0-62.0) fl RDW Coeff of Macario 14 (11.0-15.0) % Plt Count 64 L (150-400) K/uL MPV 11.20 (7.40-12.00) fL Neut % (Auto) 86.5 H (48.0-80.0) % Lymph % (Auto) 4.9 L (16.0-40.0) % [place] % (Auto) 8.1 (0.0-15.0) % Eos % (Auto) 0.3 (0.0-7.0) % Baso % (Auto) 0.2 (0.0-1.5) % Neut # (Auto) 5.3 (1.4-5.7) K/uL Lymph # (Auto) 0.3 L (0.6-2.4) K/uL [place] # (Auto) 0.5 (0.0-0.8) K/uL Eos # (Auto) 0.0 (0.0-0.7) K/uL Baso # (Auto) 0.0 (0.0-0.1) K/uL Nucleated RBC % 0.0 /100WBC Nucleated RBCs # 0 K/uL Sodium 135 L (136-148) mmol/L Potassium 3.7 (3.5-5.1) mmol/L Chloride 102 (98-107) mmol/L Carbon Dioxide 24.3 (21.0-32.0) mmol/L BUN 22 H (7.0-18.0) mg/dL Creatinine 1.4 H (0.8-1.3) mg/dL Est Cr Clr Drug Dosing 70.95 mL/min Estimated GFR (MDRD) 53.0 ml/min Glucose 106 (74-106) mg/dL Hemoglobin A1c (4.5 - 6.2) % Calcium 8.2 L (8.5-10.1) mg/dL Phosphorus 2.1 L (2.6-4.7) mg/dL Magnesium 1.9 (1.8-2.4) mg/dL Total Bilirubin 1.4 H (0.2-1.0) mg/dL AST 19 (15-37) IU/L ALT 19 (14-63) IU/L Alkaline Phosphatase 51 (46-116) U/L Troponin I < 0.050 (0.000-0.056) ng/mL B-Natriuretic Peptide (<100) PG/ML Total Protein 6.1 L (6.4-8.2) g/dL Albumin 2.7 L (3.4-5.0) g/dL Globulin 3.4 (2.6-4.0) g/dL Albumin/Globulin Ratio 0.8 L (0.9-1.6) Triglycerides (0-200) mg/dL Cholesterol (50-200) mg/dL LDL Cholesterol, Calc (60-180) mg/dL VLDL Cholesterol (5-55) mg/dL HDL Cholesterol (40-60) mg/dL Cholesterol/HDL Ratio (3.3-6.0) TSH 3rd Generation 0.80 (0.36-3.74) uIU/mL 08/19/20 08/19/20 08/19/20 Range/Units 06:52 06:52 06:52 WBC (4.0-11.0) K/uL RBC (4.50-5.90) M/uL Hgb (13.0-17.0) g/dL Hct (38.0-50.0) % MCV (80.0-98.0) fL MCH (27.0-32.0) pg MCHC (31.0-37.0) g/dL RDW Std Deviation (28.0-62.0) fl RDW Coeff of Macario (11.0-15.0) % Plt Count (150-400) K/uL MPV (7.40-12.00) fL Neut % (Auto) (48.0-80.0) % Lymph % (Auto) (16.0-40.0) % [place] % (Auto) (0.0-15.0) % Eos % (Auto) (0.0-7.0) % Baso % (Auto) (0.0-1.5) % Neut # (Auto) (1.4-5.7) K/uL Lymph # (Auto) (0.6-2.4) K/uL [place] # (Auto) (0.0-0.8) K/uL Eos # (Auto) (0.0-0.7) K/uL Baso # (Auto) (0.0-0.1) K/uL Nucleated RBC % /100WBC Nucleated RBCs # K/uL Sodium (136-148) mmol/L Potassium (3.5-5.1) mmol/L Chloride (98-107) mmol/L Carbon Dioxide (21.0-32.0) mmol/L BUN (7.0-18.0) mg/dL Creatinine (0.8-1.3) mg/dL Est Cr Clr Drug Dosing mL/min Estimated GFR (MDRD) ml/min Glucose (74-106) mg/dL Hemoglobin A1c 5.1 (4.5 - 6.2) % Calcium (8.5-10.1) mg/dL Phosphorus (2.6-4.7) mg/dL Magnesium (1.8-2.4) mg/dL Total Bilirubin (0.2-1.0) mg/dL AST (15-37) IU/L ALT (14-63) IU/L Alkaline Phosphatase (46-116) U/L Troponin I (0.000-0.056) ng/mL B-Natriuretic Peptide 4 (<100) PG/ML Total Protein (6.4-8.2) g/dL Albumin (3.4-5.0) g/dL Globulin (2.6-4.0) g/dL Albumin/Globulin Ratio (0.9-1.6) Triglycerides 126 (0-200) mg/dL Cholesterol 106 (50-200) mg/dL LDL Cholesterol, Calc 70 (60-180) mg/dL VLDL Cholesterol 25 (5-55) mg/dL HDL Cholesterol 11 L (40-60) mg/dL Cholesterol/HDL Ratio 9.6 H (3.3-6.0) TSH 3rd Generation (0.36-3.74) uIU/mL Leonardo Results Last 24 Hours: Microbiology 08/18/20 10:53 Aerobic Blood Culture - Preliminary Blood - Venous NO GROWTH AFTER 1 DAY Anaerobic Blood Culture - Preliminary 08/18/20 08:45 Aerobic Blood Culture - Preliminary Blood - Venous - Lab Draw NO GROWTH AFTER 1 DAY Anaerobic Blood Culture - Preliminary 08/19/20 05:34 Anaerobic Blood Culture - Final Blood Med Orders - Current: Current Medications Acetaminophen (Acetaminophen 500 Mg Tab) 500 mg PO Q6H PRN PRN Reason: Pain/Fever Last Admin: 08/18/20 22:31 Dose: 500 mg Documented by: Albuterol/Ipratropium (Albuterol/Ipratropium 3.0-0.5 Mg/3 Ml Neb Soln) 3 ml NEB Q4HRRT PRN PRN Reason: Shortness Of Breath/wheezing Diltiazem HCl (Diltiazem Ir 30 Mg Tab) 30 mg PO Q6HR [facility] Last Admin: 08/19/20 11:45 Dose: 30 mg Documented by: Pantoprazole Sodium 40 mg/ (Sodium Chloride) 10 mls @ 300 mls/hr IV DAILY [facility] Last Admin: 08/19/20 08:38 Dose: 300 mls/hr Documented by: Lactated Ringer's (Ringers, Lactated) 1,000 mls @ 200 mls/hr IV ASDIRECTED [facility] Last Admin: 08/19/20 12:25 Dose: 200 mls/hr Documented by: Vancomycin HCl 1.75 gm/ Premix 350 mls @ 175 mls/hr IV Q12H [facility] Last Admin: 08/19/20 13:39 Dose: 175 mls/hr Documented by: Piperacillin Sod/Tazobactam (Sod 3.375 gm/ Sodium Chloride) 50 mls @ 100 mls/hr IV Q6H [facility] Last Admin: 08/19/20 11:40 Dose: 100 mls/hr Documented by: Morphine Sulfate (Morphine 10 Mg/Ml Syringe) 1 mg IVPUSH Q4H PRN PRN Reason: Pain (severe 7-10) Stop: 08/19/20 15:28 Ondansetron HCl (Ondansetron 4 Mg/2 Ml Sdv) 4 mg IVPUSH Q4H PRN PRN Reason: Nausea/Vomiting Sodium Chloride (Sodium Chloride 0.9% 10 Ml Syringe) 10 ml FLUSH ASDIRECTED PRN PRN Reason: Keep Vein Open Last Admin: 08/18/20 09:10 Dose: 10 ml Documented by: Sodium Chloride (Sodium Chloride 0.9% 2.5 Ml Syringe) 2.5 ml FLUSH ASDIRECTED PRN PRN Reason: Keep Vein Open Last Admin: 08/18/20 09:10 Dose: 2.5 ml Documented by: Vancomycin HCl (Pharmacy To Dose - Vancomycin) 1 dose .XX ASDIRECTED [facility] Discontinued Medications Acetaminophen (Acetaminophen 500 Mg Tab) 1,000 mg PO ONETIME ONE Stop: 08/18/20 08:38 Last Admin: 08/18/20 08:43 Dose: 1,000 mg Documented by: Diltiazem HCl (Diltiazem 25 Mg/5 Ml Sdv) 10 mg IVPUSH ONETIME ONE Stop: 08/19/20 08:16 Last Admin: 08/19/20 08:13 Dose: 10 mg Documented by: Diltiazem HCl (Diltiazem 25 Mg/5 Ml Sdv) 10 mg IVPUSH ONETIME ONE Stop: 08/19/20 09:06 Last Admin: 08/19/20 09:06 Dose: 10 mg Documented by: Diltiazem HCl (Diltiazem 25 Mg/5 Ml Sdv) 20 mg IVPUSH ONETIME ONE Stop: 08/19/20 10:46 Last Admin: 08/19/20 12:16 Dose: Not Given Documented by: Lactated Ringer's (Ringers, Lactated) 1,000 mls @ 2,000 mls/hr IV .BOLUS ONE Stop: 08/18/20 09:23 Last Admin: 08/18/20 09:10 Dose: 2,000 mls/hr Documented by: Sodium Chloride (Normal Saline) 1,000 mls @ 999 mls/hr IV STAT ONE Stop: 08/18/20 11:40 Last Admin: 08/18/20 10:58 Dose: 999 mls/hr Documented by: Piperacillin Sod/Tazobactam (Sod 4.5 gm/ Sodium Chloride) 100 mls @ 100 mls/hr IV ONETIME ONE Stop: 08/18/20 11:39 Last Admin: 08/18/20 10:58 Dose: 100 mls/hr Documented by: Vancomycin HCl 2 gm/ Premix 400 mls @ 200 mls/hr IV NOW STA Stop: 08/18/20 12:39 Last Admin: 08/18/20 11:56 Dose: 200 mls/hr Documented by: Piperacillin Sod/Tazobactam (Sod 3.375 gm/ Sodium Chloride) 50 mls @ 100 mls/hr IV Q8H [facility] Last Admin: 08/19/20 00:01 Dose: 100 mls/hr Documented by: Magnesium Sulfate (Magnesium Sulfate In Water 2 Gm/50 Ml) 2 gm in 50 mls @ 50 mls/hr IV ONETIME ONE Stop: 08/18/20 23:40 Last Admin: 08/18/20 22:50 Dose: 50 mls/hr Documented by: Magnesium Sulfate (Magnesium Sulfate In Water 2 Gm/50 Ml) 2 gm in 50 mls @ 50 mls/hr IV ONETIME ONE Stop: 08/19/20 12:07 Last Admin: 08/19/20 12:25 Dose: 50 mls/hr Documented by: Iopamidol (Iopamidol 755 Mg/Ml 500 Ml Multipack Bottle) 100 ml IVPUSH ONETIME STA Stop: 08/18/20 12:26 Last Admin: 08/18/20 14:08 Dose: 100 ml Documented by: Potassium Chloride (Potassium Chloride 20 Meq Tab.Er) 40 meq PO ONETIME ONE Stop: 08/19/20 11:09 Last Admin: 08/19/20 12:25 Dose: 40 meq Documented by: - Exam General: Alert, Oriented Lungs: Clear to Auscultation, Normal Respiratory Effort Cardiovascular: Irregular Rhythm, Tachycardia GI/Abdominal Exam: Soft, Non-Tender Extremities: No Pedal Edema Psy/Mental Status: Alert - Patient Data Lab Results Last 24 hrs: Laboratory Results - last 24 hr 08/19/20 08/19/20 08/19/20 Range/Units 06:52 06:52 06:52 WBC 6.17 (4.0-11.0) K/uL RBC 4.42 L (4.50-5.90) M/uL Hgb 13.3 (13.0-17.0) g/dL Hct 39.8 (38.0-50.0) % MCV 90.0 (80.0-98.0) fL MCH 30.1 (27.0-32.0) pg MCHC 33.4 (31.0-37.0) g/dL RDW Std Deviation 46.2 (28.0-62.0) fl RDW Coeff of Macario 14 (11.0-15.0) % Plt Count 64 L (150-400) K/uL MPV 11.20 (7.40-12.00) fL Neut % (Auto) 86.5 H (48.0-80.0) % Lymph % (Auto) 4.9 L (16.0-40.0) % [place] % (Auto) 8.1 (0.0-15.0) % Eos % (Auto) 0.3 (0.0-7.0) % Baso % (Auto) 0.2 (0.0-1.5) % Neut # (Auto) 5.3 (1.4-5.7) K/uL Lymph # (Auto) 0.3 L (0.6-2.4) K/uL [place] # (Auto) 0.5 (0.0-0.8) K/uL Eos # (Auto) 0.0 (0.0-0.7) K/uL Baso # (Auto) 0.0 (0.0-0.1) K/uL Nucleated RBC % 0.0 /100WBC Nucleated RBCs # 0 K/uL Sodium 135 L (136-148) mmol/L Potassium 3.7 (3.5-5.1) mmol/L Chloride 102 (98-107) mmol/L Carbon Dioxide 24.3 (21.0-32.0) mmol/L BUN 22 H (7.0-18.0) mg/dL Creatinine 1.4 H (0.8-1.3) mg/dL Est Cr Clr Drug Dosing 70.95 mL/min Estimated GFR (MDRD) 53.0 ml/min Glucose 106 (74-106) mg/dL Hemoglobin A1c (4.5 - 6.2) % Calcium 8.2 L (8.5-10.1) mg/dL Phosphorus 2.1 L (2.6-4.7) mg/dL Magnesium 1.9 (1.8-2.4) mg/dL Total Bilirubin 1.4 H (0.2-1.0) mg/dL AST 19 (15-37) IU/L ALT 19 (14-63) IU/L Alkaline Phosphatase 51 (46-116) U/L Troponin I < 0.050 (0.000-0.056) ng/mL B-Natriuretic Peptide (<100) PG/ML Total Protein 6.1 L (6.4-8.2) g/dL Albumin 2.7 L (3.4-5.0) g/dL Globulin 3.4 (2.6-4.0) g/dL Albumin/Globulin Ratio 0.8 L (0.9-1.6) Triglycerides (0-200) mg/dL Cholesterol (50-200) mg/dL LDL Cholesterol, Calc (60-180) mg/dL VLDL Cholesterol (5-55) mg/dL HDL Cholesterol (40-60) mg/dL Cholesterol/HDL Ratio (3.3-6.0) TSH 3rd Generation 0.80 (0.36-3.74) uIU/mL 08/19/20 08/19/20 08/19/20 Range/Units 06:52 06:52 06:52 WBC (4.0-11.0) K/uL RBC (4.50-5.90) M/uL Hgb (13.0-17.0) g/dL Hct (38.0-50.0) % MCV (80.0-98.0) fL MCH (27.0-32.0) pg MCHC (31.0-37.0) g/dL RDW Std Deviation (28.0-62.0) fl RDW Coeff of Macario (11.0-15.0) % Plt Count (150-400) K/uL MPV (7.40-12.00) fL Neut % (Auto) (48.0-80.0) % Lymph % (Auto) (16.0-40.0) % [place] % (Auto) (0.0-15.0) % Eos % (Auto) (0.0-7.0) % Baso % (Auto) (0.0-1.5) % Neut # (Auto) (1.4-5.7) K/uL Lymph # (Auto) (0.6-2.4) K/uL [place] # (Auto) (0.0-0.8) K/uL Eos # (Auto) (0.0-0.7) K/uL Baso # (Auto) (0.0-0.1) K/uL Nucleated RBC % /100WBC Nucleated RBCs # K/uL Sodium (136-148) mmol/L Potassium (3.5-5.1) mmol/L Chloride (98-107) mmol/L Carbon Dioxide (21.0-32.0) mmol/L BUN (7.0-18.0) mg/dL Creatinine (0.8-1.3) mg/dL Est Cr Clr Drug Dosing mL/min Estimated GFR (MDRD) ml/min Glucose (74-106) mg/dL Hemoglobin A1c 5.1 (4.5 - 6.2) % Calcium (8.5-10.1) mg/dL Phosphorus (2.6-4.7) mg/dL Magnesium (1.8-2.4) mg/dL Total Bilirubin (0.2-1.0) mg/dL AST (15-37) IU/L ALT (14-63) IU/L Alkaline Phosphatase (46-116) U/L Troponin I (0.000-0.056) ng/mL B-Natriuretic Peptide 4 (<100) PG/ML Total Protein (6.4-8.2) g/dL Albumin (3.4-5.0) g/dL Globulin (2.6-4.0) g/dL Albumin/Globulin Ratio (0.9-1.6) Triglycerides 126 (0-200) mg/dL Cholesterol 106 (50-200) mg/dL LDL Cholesterol, Calc 70 (60-180) mg/dL VLDL Cholesterol 25 (5-55) mg/dL HDL Cholesterol 11 L (40-60) mg/dL Cholesterol/HDL Ratio 9.6 H (3.3-6.0) TSH 3rd Generation (0.36-3.74) uIU/mL Result Diagrams: 08/19/20 06:52 08/19/20 06:52 [facility] Results Last 24 hrs: Microbiology 08/18/20 10:53 Aerobic Blood Culture - Preliminary Blood - Venous NO GROWTH AFTER 1 DAY Anaerobic Blood Culture - Preliminary 08/18/20 08:45 Aerobic Blood Culture - Preliminary Blood - Venous - Lab Draw NO GROWTH AFTER 1 DAY Anaerobic Blood Culture - Preliminary 08/19/20 05:34 Anaerobic Blood Culture - Final Blood Sepsis Event Note - Evaluation Sepsis Screening Result: No Definite Risk - Focused Exam Vital Signs: Vital Signs Temp Pulse Resp BP Pulse Ox 08/19/20 11:45 97.4 F 140 H 16 106/72 97 08/19/20 08:38 109/64 08/19/20 08:15 105 H 103/54 L 08/19/20 08:10 135 H 115/70 08/19/20 08:00 116/72 08/19/20 07:55 113/73 08/19/20 07:37 97.4 F 84 16 134/80 95 08/19/20 04:15 99.1 F 105 H 20 119/70 97 - Problem List & Annotations (1) Sepsis SNOMED Code(s): 05323491 Code(s): A41.9 - SEPSIS, UNSPECIFIED ORGANISM Status: Acute (2) Sleep apnea SNOMED Code(s): 51176179 Code(s): G47.30 - SLEEP APNEA, UNSPECIFIED Status: Acute (3) UTI (urinary tract infection) SNOMED Code(s): 63476815 Code(s): N39.0 - URINARY TRACT INFECTION, SITE NOT SPECIFIED Status: Acute - Problem List Review Problem List Initiated/Reviewed/Updated: Yes - My Orders Last 24 Hours: My Active Orders 08/19/20 12:00 Diltiazem IR [Cardizem] 30 mg PO Q6HR 08/19/20 12:16 Echo Comp wo Cont [US] Urgent - Plan Plan:: Sepsis-suspected secondary to urinary tract infection. IV fluids, vancomycin, Zosyn. Blood cultures positive for gram-negative rods and gram-positive cocci in clusters. Will obtain CT abdomen with/without contrast to rule out intra- abdominal source of infection. A. fib RVR- New onset, given 20 mg IV push diltiazem. Started diltiazem IR 30 every 6 hours. Patient's rate and rhythm have been controlled post diltiazem therapy. SCD for dvt prophylaxis (low platelet count of 64), IV zofran for nausea and vomiting, Protonix, Tylenol for pain <Mana Ochoa - Last Filed: 08/24/20 15:52> - General Info Subjective Update: I have seen and evaluated the patient. I have discussed findings and treatment plan with resident. I agree with the assessment and plan in the following note - Patient Data Vitals - Most Recent: Last Vital Signs Temp 36 C L 08/21/20 11:39 Pulse 63 08/21/20 11:39 Resp 16 08/21/20 11:39 BP 129/76 08/21/20 11:39 Pulse Ox 97 08/21/20 11:39 Leonardo Results Last 24 Hours: Microbiology 08/19/20 05:39 Aerobic Blood Culture - Final Blood NO GROWTH AFTER 5 DAYS Anaerobic Blood Culture - Final NO GROWTH AFTER 5 DAYS 08/19/20 05:34 Aerobic Blood Culture - Final Blood NO GROWTH AFTER 5 DAYS Anaerobic Blood Culture - Final 08/20/20 20:09 Aerobic Blood Culture - Preliminary Blood - Venous NO GROWTH AFTER 3 DAYS Anaerobic Blood Culture - Preliminary NO GROWTH AFTER 3 DAYS 08/20/20 20:15 Aerobic Blood Culture - Preliminary Blood - Venous - Lab Draw NO GROWTH AFTER 3 DAYS Anaerobic Blood Culture - Preliminary NO GROWTH AFTER 3 DAYS 08/18/20 10:53 Aerobic Blood Culture - Final Blood - Venous NO GROWTH AFTER 5 DAYS Anaerobic Blood Culture - Final Escherichia Coli Med Orders - Current: Current Medications Discontinued Medications Acetaminophen (Acetaminophen 500 Mg Tab) 1,000 mg PO ONETIME ONE Stop: 08/18/20 08:38 Last Admin: 08/18/20 08:43 Dose: 1,000 mg Documented by: Acetaminophen (Acetaminophen 500 Mg Tab) 500 mg PO Q6H PRN PRN Reason: Pain/Fever Last Admin: 08/19/20 15:11 Dose: 500 mg Documented by: Albuterol/Ipratropium (Albuterol/Ipratropium 3.0-0.5 Mg/3 Ml Neb Soln) 3 ml NEB Q4HRRT PRN PRN Reason: Shortness Of Breath/wheezing Aspirin (Aspirin 81 Mg Tab.Ec) 81 mg PO DAILY [facility] Last Admin: 08/21/20 08:25 Dose: 81 mg Documented by: Diltiazem HCl (Diltiazem 25 Mg/5 Ml Sdv) 10 mg IVPUSH ONETIME ONE Stop: 08/19/20 08:16 Last Admin: 08/19/20 08:13 Dose: 10 mg Documented by: Diltiazem HCl (Diltiazem 25 Mg/5 Ml Sdv) 10 mg IVPUSH ONETIME ONE Stop: 08/19/20 09:06 Last Admin: 08/19/20 09:06 Dose: 10 mg Documented by: Diltiazem HCl (Diltiazem 25 Mg/5 Ml Sdv) 20 mg IVPUSH ONETIME ONE Stop: 08/19/20 10:46 Last Admin: 08/19/20 12:16 Dose: Not Given Documented by: Diltiazem HCl (Diltiazem Ir 30 Mg Tab) 30 mg PO Q6HR [facility] Last Admin: 08/21/20 11:37 Dose: 30 mg Documented by: Diltiazem HCl (Diltiazem 25 Mg/5 Ml Sdv) 20 mg IVPUSH ONETIME ONE Stop: 08/20/20 19:32 Last Admin: 08/20/20 20:18 Dose: 20 mg Documented by: Diltiazem HCl (Diltiazem 25 Mg/5 Ml Sdv) 10 mg IVPUSH Q3H PRN PRN Reason: Tachycardia Docusate Sodium (Docusate Sodium 100 Mg Cap) 100 mg PO ONETIME ONE Stop: 08/19/20 22:10 Last Admin: 08/19/20 22:39 Dose: 100 mg Documented by: Lactated Ringer's (Ringers, Lactated) 1,000 mls @ 2,000 mls/hr IV .BOLUS ONE Stop: 08/18/20 09:23 Last Admin: 08/18/20 09:10 Dose: 2,000 mls/hr Documented by: Sodium Chloride (Normal Saline) 1,000 mls @ 999 mls/hr IV STAT ONE Stop: 08/18/20 11:40 Last Admin: 08/18/20 10:58 Dose: 999 mls/hr Documented by: Piperacillin Sod/Tazobactam (Sod 4.5 gm/ Sodium Chloride) 100 mls @ 100 mls/hr IV ONETIME ONE Stop: 08/18/20 11:39 Last Admin: 08/18/20 10:58 Dose: 100 mls/hr Documented by: Vancomycin HCl 2 gm/ Premix 400 mls @ 200 mls/hr IV NOW STA Stop: 08/18/20 12:39 Last Admin: 08/18/20 11:56 Dose: 200 mls/hr Documented by: Pantoprazole Sodium 40 mg/ (Sodium Chloride) 10 mls @ 300 mls/hr IV DAILY [facility] Last Admin: 08/21/20 08:26 Dose: 300 mls/hr Documented by: Lactated Ringer's (Ringers, Lactated) 1,000 mls @ 150 mls/hr IV ASDIRECTED [facility] Last Admin: 08/21/20 04:36 Dose: 200 mls/hr Documented by: Piperacillin Sod/Tazobactam (Sod 3.375 gm/ Sodium Chloride) 50 mls @ 100 mls/hr IV Q8H [facility] Last Admin: 08/19/20 00:01 Dose: 100 mls/hr Documented by: Vancomycin HCl 1.75 gm/ Premix 350 mls @ 175 mls/hr IV Q12H [facility] Last Admin: 08/21/20 07:17 Dose: Not Given Documented by: Magnesium Sulfate (Magnesium Sulfate In Water 2 Gm/50 Ml) 2 gm in 50 mls @ 50 mls/hr IV ONETIME ONE Stop: 08/18/20 23:40 Last Admin: 08/18/20 22:50 Dose: 50 mls/hr Documented by: Piperacillin Sod/Tazobactam (Sod 3.375 gm/ Sodium Chloride) 50 mls @ 100 mls/hr IV Q6H [facility] Last Admin: 08/21/20 11:37 Dose: 100 mls/hr Documented by: Magnesium Sulfate (Magnesium Sulfate In Water 2 Gm/50 Ml) 2 gm in 50 mls @ 50 mls/hr IV ONETIME ONE Stop: 08/19/20 12:07 Last Admin: 08/19/20 12:25 Dose: 50 mls/hr Documented by: Vancomycin HCl 1.75 gm/ Premix 350 mls @ 175 mls/hr IV Q8H [facility] Last Admin: 08/21/20 04:40 Dose: 175 mls/hr Documented by: Iopamidol (Iopamidol 755 Mg/Ml 500 Ml Multipack Bottle) 100 ml IVPUSH ONETIME STA Stop: 08/18/20 12:26 Last Admin: 08/18/20 14:08 Dose: 100 ml Documented by: Iopamidol (Iopamidol 755 Mg/Ml 500 Ml Multipack Bottle) 100 ml IVPUSH ONETIME STA Stop: 08/20/20 05:59 Last Admin: 08/20/20 05:59 Dose: 100 ml Documented by: Magnesium Oxide (Magnesium Oxide 400 Mg Tab) 800 mg PO ONETIME ONE Stop: 08/20/20 09:01 Last Admin: 08/20/20 09:34 Dose: 800 mg Documented by: Morphine Sulfate (Morphine 10 Mg/Ml Syringe) 1 mg IVPUSH Q4H PRN PRN Reason: Pain (severe 7-10) Stop: 08/19/20 15:28 Ondansetron HCl (Ondansetron 4 Mg/2 Ml Sdv) 4 mg IVPUSH Q4H PRN PRN Reason: Nausea/Vomiting Potassium Chloride (Potassium Chloride 20 Meq Tab.Er) 40 meq PO ONETIME ONE Stop: 08/19/20 11:09 Last Admin: 08/19/20 12:25 Dose: 40 meq Documented by: Potassium Chloride (Potassium Chloride 20 Meq Tab.Er) 40 meq PO ONETIME ONE Stop: 08/20/20 08:05 Last Admin: 08/20/20 09:34 Dose: 40 meq Documented by: Sodium Chloride (Sodium Chloride 0.9% 10 Ml Syringe) 10 ml FLUSH ASDIRECTED PRN PRN Reason: Keep Vein Open Last Admin: 08/18/20 09:10 Dose: 10 ml Documented by: Sodium Chloride (Sodium Chloride 0.9% 2.5 Ml Syringe) 2.5 ml FLUSH ASDIRECTED PRN PRN Reason: Keep Vein Open Last Admin: 08/18/20 09:10 Dose: 2.5 ml Documented by: Sodium Phosphate (Phosphorus #1 250 Mg Tab) 250 mg PO QID [facility] Last Admin: 08/21/20 11:37 Dose: 250 mg Documented by: Tamsulosin HCl (Tamsulosin 0.4 Mg Cap.Er) 0.4 mg PO PCBREAKFAST [facility] Last Admin: 08/21/20 08:25 Dose: 0.4 mg Documented by: Vancomycin HCl (Pharmacy To Dose - Vancomycin) 1 dose .XX ASDIRECTED [facility] - Patient Data Result Diagrams: 08/21/20 05:42 08/21/20 05:42 Leonardo Results Last 24 hrs: Microbiology 08/19/20 05:39 Aerobic Blood Culture - Final Blood NO GROWTH AFTER 5 DAYS Anaerobic Blood Culture - Final NO GROWTH AFTER 5 DAYS 08/19/20 05:34 Aerobic Blood Culture - Final Blood NO GROWTH AFTER 5 DAYS Anaerobic Blood Culture - Final 08/20/20 20:09 Aerobic Blood Culture - Preliminary Blood - Venous NO GROWTH AFTER 3 DAYS Anaerobic Blood Culture - Preliminary NO GROWTH AFTER 3 DAYS 08/20/20 20:15 Aerobic Blood Culture - Preliminary Blood - Venous - Lab Draw NO GROWTH AFTER 3 DAYS Anaerobic Blood Culture - Preliminary NO GROWTH AFTER 3 DAYS 08/18/20 10:53 Aerobic Blood Culture - Final Blood - Venous NO GROWTH AFTER 5 DAYS Anaerobic Blood Culture - Final Escherichia Coli - Problem List & Annotations (1) Sepsis SNOMED Code(s): 91541974 Code(s): A41.9 - SEPSIS, UNSPECIFIED ORGANISM Status: Acute (2) UTI (urinary tract infection) SNOMED Code(s): 69330153 Code(s): N39.0 - URINARY TRACT INFECTION, SITE NOT SPECIFIED Status: Acute (3) Sleep apnea SNOMED Code(s): 55318434 Code(s): G47.30 - SLEEP APNEA, UNSPECIFIED Status: Acute
[2020-08-19] MEDS: Acetaminophen 500 MG Tab PO PRN (15:11)
[2020-08-19] MEDS: Aspirin 81 MG Tab.EC PO SCH (20:40)
[2020-08-19] MEDS ORDERED: Docusate Sodium 100 MG Cap PO ONE (22:09)
[2020-08-20] MEDS: Diltiazem IR 30 MG Tab PO SCH ×4 (00:01→17:47)
[2020-08-20] MEDS: Piperacillin/Tazobactam 3.375 GM in Sodium Chloride 0.9% 50 ML IV SCH ×4 (00:07→17:48)
[2020-08-20] MEDS: VANCOmycin 1.75 GM/350 ML 1.75 GM in Premix Bag 1 BAG IV SCH ×3 (00:51→21:48)
[2020-08-20] MEDS ORDERED: Iopamidol 755 MG/ML 500 ML Multipack Bottle IVPUSH STA (05:58)
[2020-08-20 06:17] LABS: BLOOD UREA NITROGEN,BUN 16 mg/dL (7.0-18.0); CARBON DIOXIDE,CO2 23.3 mmol/L (21.0-32.0); CHLORIDE,CL 102 mmol/L (98-107); GLUCOSE RANDOM 105 mg/dL (74-106); POTASSIUM,K 3.7 mmol/L (3.5-5.1); SODIUM,NA 136 mmol/L (136-148)
--- NOTE | 2020-08-20 06:26 | CT ---
HISTORY: UTI. TECHNIQUE: Noncontrast CT abdomen and pelvis followed by intravenous contrast enhanced CT of the abdomen and pelvis. 100 mL of Isovue-370 intravenous contrast was administered. COMPARISON: No prior CT abdomen pelvis. FINDINGS: Sub cm low-density lesion within the posterior segment of the right hepatic lobe on image #31 of series 305 is too small to characterize. There is no other focal liver parenchymal abnormality. No biliary ductal dilatation. Gallstones are present. Splenomegaly. Adrenal glands normal. No focal pancreatic abnormality. There are intrarenal calculi present bilaterally. No ureteral calculus. No hydronephrosis. Minor perinephric stranding. Probable right renal cyst. The urinary bladder is nondistended. There is some haziness of the fat surrounding urinary bladder. Correlation with urinalysis is suggested. Pelvic calcifications may represent phleboliths. Enlarged prostate. - No small bowel obstruction. No appendicitis. No diverticulitis. No fluid collection or free intraperitoneal air. No abdominal aortic aneurysm. - Prior right orchiectomy. - No consolidation within the lung bases nor pleural effusion. - Degenerative changes of the spine. No acute fractures. Degenerative changes of the sacroiliac joints and left hip. Prior right hip replacement. IMPRESSION: 1. Bilateral intrarenal calculi. No ureteral calculus or hydronephrosis. 2. Nondistended urinary bladder. Slight haziness of the fat surrounding urinary bladder. Recommend correlation with urinalysis to exclude cystitis. Prostate is enlarged. 3. Gallstones within a not overly distended gallbladder. 4. Splenomegaly. 5. No diverticulitis, appendicitis or bowel obstruction. Please note that all CT scans at this facility use dose modulation, iterative reconstruction, and/or weight-based dosing when appropriate to reduce radiation dose to as low as reasonably achievable. Dictated by Miah Cornelius MD @ Aug 20 2020 6:17AM Signed by Dr. Miah Cornelius @ Aug 20 2020 6:24AM
[2020-08-20] MEDS ORDERED: Potassium Chloride 20 MEQ Tab.ER PO ONE (08:04)
[2020-08-20] MEDS: Lactated Ringers 1,000 ML IV SCH ×2 (08:05→19:13)
[2020-08-20] MEDS ORDERED: Magnesium Oxide 400 MG Tab PO ONE (09:00)
[2020-08-20] MEDS: Aspirin 81 MG Tab.EC PO SCH (09:35)
[2020-08-20] MEDS: Pantoprazole 40 MG in Sodium Chloride 0.9% 10 ML IV SCH (09:57)
[2020-08-20] MEDS: Tamsulosin 0.4 MG Cap.ER PO SCH (11:57)
[2020-08-20] MEDS: Phosphorus #1 250 MG Tab PO SCH ×2 (11:57→17:47)
--- NOTE | 2020-08-20 12:10 | PCM.PN ---
<Claus Rodriguez - Last Filed: 08/20/20 12:12> - General Info Date of Service: 08/20/20 Subjective Update: Patient states he feels significantly better this morning, denies fever, chills, nausea, vomiting, chest pain, shortness of breath. - Review of Systems General: Denies: Fever, Chills Pulmonary: Denies: Shortness of Breath, Cough Cardiovascular: Denies: Chest Pain, Palpitations, Dyspnea on Exertion Gastrointestinal: Denies: Abdominal Pain, Nausea, Vomiting Neurological: Denies: Confusion, Dizziness, Headache Psychiatric: Denies: Confusion - Patient Data Vitals - Most Recent: Last Vital Signs Temp 98.8 F 08/20/20 11:19 Pulse 82 08/20/20 11:19 Resp 17 08/20/20 11:19 BP 117/73 08/20/20 11:19 Pulse Ox 95 08/20/20 11:19 Weight - Most Recent: 164.3 kg I&O - Last 24 Hours: Intake & Output 08/19/20 08/20/20 08/20/20 22:59 06:59 14:59 Intake Total 2688 860 Output Total 1600 1280 Balance 1088 -420 Lab Results Last 24 Hours: Laboratory Results - last 24 hr 08/19/20 08/20/20 08/20/20 Range/Units 06:52 05:47 05:47 WBC 4.63 (4.0-11.0) K/uL RBC 4.14 L (4.50-5.90) M/uL Hgb 12.7 L (13.0-17.0) g/dL Hct 36.9 L (38.0-50.0) % MCV 89.1 (80.0-98.0) fL MCH 30.7 (27.0-32.0) pg MCHC 34.4 (31.0-37.0) g/dL RDW Std Deviation 45.7 (28.0-62.0) fl RDW Coeff of Macario 14 (11.0-15.0) % Plt Count 76 L (150-400) K/uL MPV 11.70 (7.40-12.00) fL Neut % (Auto) 78.6 (48.0-80.0) % Lymph % (Auto) 9.7 L (16.0-40.0) % [place] % (Auto) 10.4 (0.0-15.0) % Eos % (Auto) 1.1 (0.0-7.0) % Baso % (Auto) 0.2 (0.0-1.5) % Neut # (Auto) 3.6 (1.4-5.7) K/uL Lymph # (Auto) 0.5 L (0.6-2.4) K/uL [place] # (Auto) 0.5 (0.0-0.8) K/uL Eos # (Auto) 0.1 (0.0-0.7) K/uL Baso # (Auto) 0.0 (0.0-0.1) K/uL Nucleated RBC % 0.0 /100WBC Nucleated RBCs # 0 K/uL Sodium 136 (136-148) mmol/L Potassium 3.7 (3.5-5.1) mmol/L Chloride 102 (98-107) mmol/L Carbon Dioxide 23.3 (21.0-32.0) mmol/L BUN 16 (7.0-18.0) mg/dL Creatinine 1.1 (0.8-1.3) mg/dL Est Cr Clr Drug Dosing 90.30 mL/min Estimated GFR (MDRD) > 60.0 ml/min Glucose 105 (74-106) mg/dL Calcium 8.2 L (8.5-10.1) mg/dL Magnesium (1.8-2.4) mg/dL B-Natriuretic Peptide 4 (<100) PG/ML 08/20/20 Range/Units 05:47 WBC (4.0-11.0) K/uL RBC (4.50-5.90) M/uL Hgb (13.0-17.0) g/dL Hct (38.0-50.0) % MCV (80.0-98.0) fL MCH (27.0-32.0) pg MCHC (31.0-37.0) g/dL RDW Std Deviation (28.0-62.0) fl RDW Coeff of Macario (11.0-15.0) % Plt Count (150-400) K/uL MPV (7.40-12.00) fL Neut % (Auto) (48.0-80.0) % Lymph % (Auto) (16.0-40.0) % [place] % (Auto) (0.0-15.0) % Eos % (Auto) (0.0-7.0) % Baso % (Auto) (0.0-1.5) % Neut # (Auto) (1.4-5.7) K/uL Lymph # (Auto) (0.6-2.4) K/uL [place] # (Auto) (0.0-0.8) K/uL Eos # (Auto) (0.0-0.7) K/uL Baso # (Auto) (0.0-0.1) K/uL Nucleated RBC % /100WBC Nucleated RBCs # K/uL Sodium (136-148) mmol/L Potassium (3.5-5.1) mmol/L Chloride (98-107) mmol/L Carbon Dioxide (21.0-32.0) mmol/L BUN (7.0-18.0) mg/dL Creatinine (0.8-1.3) mg/dL Est Cr Clr Drug Dosing mL/min Estimated GFR (MDRD) ml/min Glucose (74-106) mg/dL Calcium (8.5-10.1) mg/dL Magnesium 1.9 (1.8-2.4) mg/dL B-Natriuretic Peptide (<100) PG/ML Leonardo Results Last 24 Hours: Microbiology 08/18/20 10:53 Aerobic Blood Culture - Preliminary Blood - Venous NO GROWTH AFTER 2 DAYS Anaerobic Blood Culture - Final Escherichia Coli 08/18/20 08:45 Aerobic Blood Culture - Final Blood - Venous - Lab Draw Anaerobic Blood Culture - Final 08/18/20 10:08 Urine Culture - Final Urine, Clean Catch Escherichia Coli 08/19/20 05:39 Aerobic Blood Culture - Preliminary Blood NO GROWTH AFTER 1 DAY Anaerobic Blood Culture - Preliminary NO GROWTH AFTER 1 DAY 08/19/20 05:34 Aerobic Blood Culture - Preliminary Blood NO GROWTH AFTER 1 DAY Anaerobic Blood Culture - Final Med Orders - Current: Current Medications Acetaminophen (Acetaminophen 500 Mg Tab) 500 mg PO Q6H PRN PRN Reason: Pain/Fever Last Admin: 08/19/20 15:11 Dose: 500 mg Documented by: Albuterol/Ipratropium (Albuterol/Ipratropium 3.0-0.5 Mg/3 Ml Neb Soln) 3 ml NEB Q4HRRT PRN PRN Reason: Shortness Of Breath/wheezing Aspirin (Aspirin 81 Mg Tab.Ec) 81 mg PO DAILY [facility] Last Admin: 08/20/20 09:35 Dose: 81 mg Documented by: Diltiazem HCl (Diltiazem Ir 30 Mg Tab) 30 mg PO Q6HR [facility] Last Admin: 08/20/20 11:57 Dose: 30 mg Documented by: Pantoprazole Sodium 40 mg/ (Sodium Chloride) 10 mls @ 300 mls/hr IV DAILY [facility] Last Admin: 08/20/20 09:57 Dose: 300 mls/hr Documented by: Lactated Ringer's (Ringers, Lactated) 1,000 mls @ 150 mls/hr IV ASDIRECTED [facility] Last Admin: 08/20/20 08:05 Dose: 200 mls/hr Documented by: Vancomycin HCl 1.75 gm/ Premix 350 mls @ 175 mls/hr IV Q12H [facility] Last Admin: 08/20/20 00:51 Dose: 175 mls/hr Documented by: Piperacillin Sod/Tazobactam (Sod 3.375 gm/ Sodium Chloride) 50 mls @ 100 mls/hr IV Q6H [facility] Last Admin: 08/20/20 12:03 Dose: 100 mls/hr Documented by: Ondansetron HCl (Ondansetron 4 Mg/2 Ml Sdv) 4 mg IVPUSH Q4H PRN PRN Reason: Nausea/Vomiting Sodium Chloride (Sodium Chloride 0.9% 10 Ml Syringe) 10 ml FLUSH ASDIRECTED PRN PRN Reason: Keep Vein Open Last Admin: 08/18/20 09:10 Dose: 10 ml Documented by: Sodium Chloride (Sodium Chloride 0.9% 2.5 Ml Syringe) 2.5 ml FLUSH ASDIRECTED PRN PRN Reason: Keep Vein Open Last Admin: 08/18/20 09:10 Dose: 2.5 ml Documented by: Sodium Phosphate (Phosphorus #1 250 Mg Tab) 250 mg PO QID [facility] Last Admin: 08/20/20 11:57 Dose: 250 mg Documented by: Tamsulosin HCl (Tamsulosin 0.4 Mg Cap.Er) 0.4 mg PO PCBREAKFAST [facility] Last Admin: 08/20/20 11:57 Dose: 0.4 mg Documented by: Vancomycin HCl (Pharmacy To Dose - Vancomycin) 1 dose .XX ASDIRECTED [facility] Discontinued Medications Acetaminophen (Acetaminophen 500 Mg Tab) 1,000 mg PO ONETIME ONE Stop: 08/18/20 08:38 Last Admin: 08/18/20 08:43 Dose: 1,000 mg Documented by: Diltiazem HCl (Diltiazem 25 Mg/5 Ml Sdv) 10 mg IVPUSH ONETIME ONE Stop: 08/19/20 08:16 Last Admin: 08/19/20 08:13 Dose: 10 mg Documented by: Diltiazem HCl (Diltiazem 25 Mg/5 Ml Sdv) 10 mg IVPUSH ONETIME ONE Stop: 08/19/20 09:06 Last Admin: 08/19/20 09:06 Dose: 10 mg Documented by: Diltiazem HCl (Diltiazem 25 Mg/5 Ml Sdv) 20 mg IVPUSH ONETIME ONE Stop: 08/19/20 10:46 Last Admin: 08/19/20 12:16 Dose: Not Given Documented by: Docusate Sodium (Docusate Sodium 100 Mg Cap) 100 mg PO ONETIME ONE Stop: 08/19/20 22:10 Last Admin: 08/19/20 22:39 Dose: 100 mg Documented by: Lactated Ringer's (Ringers, Lactated) 1,000 mls @ 2,000 mls/hr IV .BOLUS ONE Stop: 08/18/20 09:23 Last Admin: 08/18/20 09:10 Dose: 2,000 mls/hr Documented by: Sodium Chloride (Normal Saline) 1,000 mls @ 999 mls/hr IV STAT ONE Stop: 08/18/20 11:40 Last Admin: 08/18/20 10:58 Dose: 999 mls/hr Documented by: Piperacillin Sod/Tazobactam (Sod 4.5 gm/ Sodium Chloride) 100 mls @ 100 mls/hr IV ONETIME ONE Stop: 08/18/20 11:39 Last Admin: 08/18/20 10:58 Dose: 100 mls/hr Documented by: Vancomycin HCl 2 gm/ Premix 400 mls @ 200 mls/hr IV NOW STA Stop: 08/18/20 12:39 Last Admin: 08/18/20 11:56 Dose: 200 mls/hr Documented by: Piperacillin Sod/Tazobactam (Sod 3.375 gm/ Sodium Chloride) 50 mls @ 100 mls/hr IV Q8H [facility] Last Admin: 08/19/20 00:01 Dose: 100 mls/hr Documented by: Magnesium Sulfate (Magnesium Sulfate In Water 2 Gm/50 Ml) 2 gm in 50 mls @ 50 mls/hr IV ONETIME ONE Stop: 08/18/20 23:40 Last Admin: 08/18/20 22:50 Dose: 50 mls/hr Documented by: Magnesium Sulfate (Magnesium Sulfate In Water 2 Gm/50 Ml) 2 gm in 50 mls @ 50 mls/hr IV ONETIME ONE Stop: 08/19/20 12:07 Last Admin: 08/19/20 12:25 Dose: 50 mls/hr Documented by: Iopamidol (Iopamidol 755 Mg/Ml 500 Ml Multipack Bottle) 100 ml IVPUSH ONETIME STA Stop: 08/18/20 12:26 Last Admin: 08/18/20 14:08 Dose: 100 ml Documented by: Iopamidol (Iopamidol 755 Mg/Ml 500 Ml Multipack Bottle) 100 ml IVPUSH ONETIME STA Stop: 08/20/20 05:59 Last Admin: 08/20/20 05:59 Dose: 100 ml Documented by: Magnesium Oxide (Magnesium Oxide 400 Mg Tab) 800 mg PO ONETIME ONE Stop: 08/20/20 09:01 Last Admin: 08/20/20 09:34 Dose: 800 mg Documented by: Morphine Sulfate (Morphine 10 Mg/Ml Syringe) 1 mg IVPUSH Q4H PRN PRN Reason: Pain (severe 7-10) Stop: 08/19/20 15:28 Potassium Chloride (Potassium Chloride 20 Meq Tab.Er) 40 meq PO ONETIME ONE Stop: 08/19/20 11:09 Last Admin: 08/19/20 12:25 Dose: 40 meq Documented by: Potassium Chloride (Potassium Chloride 20 Meq Tab.Er) 40 meq PO ONETIME ONE Stop: 08/20/20 08:05 Last Admin: 08/20/20 09:34 Dose: 40 meq Documented by: - Exam General: Alert, Oriented Lungs: Clear to Auscultation, Normal Respiratory Effort Cardiovascular: Regular Rate, Regular Rhythm GI/Abdominal Exam: Soft, Non-Tender Extremities: No Pedal Edema - Patient Data Lab Results Last 24 hrs: Laboratory Results - last 24 hr 08/19/20 08/20/20 08/20/20 Range/Units 06:52 05:47 05:47 WBC 4.63 (4.0-11.0) K/uL RBC 4.14 L (4.50-5.90) M/uL Hgb 12.7 L (13.0-17.0) g/dL Hct 36.9 L (38.0-50.0) % MCV 89.1 (80.0-98.0) fL MCH 30.7 (27.0-32.0) pg MCHC 34.4 (31.0-37.0) g/dL RDW Std Deviation 45.7 (28.0-62.0) fl RDW Coeff of Macario 14 (11.0-15.0) % Plt Count 76 L (150-400) K/uL MPV 11.70 (7.40-12.00) fL Neut % (Auto) 78.6 (48.0-80.0) % Lymph % (Auto) 9.7 L (16.0-40.0) % [place] % (Auto) 10.4 (0.0-15.0) % Eos % (Auto) 1.1 (0.0-7.0) % Baso % (Auto) 0.2 (0.0-1.5) % Neut # (Auto) 3.6 (1.4-5.7) K/uL Lymph # (Auto) 0.5 L (0.6-2.4) K/uL [place] # (Auto) 0.5 (0.0-0.8) K/uL Eos # (Auto) 0.1 (0.0-0.7) K/uL Baso # (Auto) 0.0 (0.0-0.1) K/uL Nucleated RBC % 0.0 /100WBC Nucleated RBCs # 0 K/uL Sodium 136 (136-148) mmol/L Potassium 3.7 (3.5-5.1) mmol/L Chloride 102 (98-107) mmol/L Carbon Dioxide 23.3 (21.0-32.0) mmol/L BUN 16 (7.0-18.0) mg/dL Creatinine 1.1 (0.8-1.3) mg/dL Est Cr Clr Drug Dosing 90.30 mL/min Estimated GFR (MDRD) > 60.0 ml/min Glucose 105 (74-106) mg/dL Calcium 8.2 L (8.5-10.1) mg/dL Magnesium (1.8-2.4) mg/dL B-Natriuretic Peptide 4 (<100) PG/ML 08/20/20 Range/Units 05:47 WBC (4.0-11.0) K/uL RBC (4.50-5.90) M/uL Hgb (13.0-17.0) g/dL Hct (38.0-50.0) % MCV (80.0-98.0) fL MCH (27.0-32.0) pg MCHC (31.0-37.0) g/dL RDW Std Deviation (28.0-62.0) fl RDW Coeff of Macario (11.0-15.0) % Plt Count (150-400) K/uL MPV (7.40-12.00) fL Neut % (Auto) (48.0-80.0) % Lymph % (Auto) (16.0-40.0) % [place] % (Auto) (0.0-15.0) % Eos % (Auto) (0.0-7.0) % Baso % (Auto) (0.0-1.5) % Neut # (Auto) (1.4-5.7) K/uL Lymph # (Auto) (0.6-2.4) K/uL [place] # (Auto) (0.0-0.8) K/uL Eos # (Auto) (0.0-0.7) K/uL Baso # (Auto) (0.0-0.1) K/uL Nucleated RBC % /100WBC Nucleated RBCs # K/uL Sodium (136-148) mmol/L Potassium (3.5-5.1) mmol/L Chloride (98-107) mmol/L Carbon Dioxide (21.0-32.0) mmol/L BUN (7.0-18.0) mg/dL Creatinine (0.8-1.3) mg/dL Est Cr Clr Drug Dosing mL/min Estimated GFR (MDRD) ml/min Glucose (74-106) mg/dL Calcium (8.5-10.1) mg/dL Magnesium 1.9 (1.8-2.4) mg/dL B-Natriuretic Peptide (<100) PG/ML Result Diagrams: 08/20/20 05:47 08/20/20 05:47 Leonardo Results Last 24 hrs: Microbiology 08/18/20 10:53 Aerobic Blood Culture - Preliminary Blood - Venous NO GROWTH AFTER 2 DAYS Anaerobic Blood Culture - Final Escherichia Coli 08/18/20 08:45 Aerobic Blood Culture - Final Blood - Venous - Lab Draw Anaerobic Blood Culture - Final 08/18/20 10:08 Urine Culture - Final Urine, Clean Catch Escherichia Coli 08/19/20 05:39 Aerobic Blood Culture - Preliminary Blood NO GROWTH AFTER 1 DAY Anaerobic Blood Culture - Preliminary NO GROWTH AFTER 1 DAY 08/19/20 05:34 Aerobic Blood Culture - Preliminary Blood NO GROWTH AFTER 1 DAY Anaerobic Blood Culture - Final Sepsis Event Note - Evaluation Sepsis Screening Result: No Definite Risk - Focused Exam Vital Signs: Vital Signs Temp Pulse Resp BP Pulse Ox 08/20/20 11:19 98.8 F 82 17 117/73 95 08/20/20 07:00 99.1 F 86 18 113/77 94 L 08/20/20 04:00 100 F 92 18 122/68 98 - Problem List & Annotations (1) Sepsis SNOMED Code(s): 37040981 Code(s): A41.9 - SEPSIS, UNSPECIFIED ORGANISM Status: Acute (2) Sleep apnea SNOMED Code(s): 58584524 Code(s): G47.30 - SLEEP APNEA, UNSPECIFIED Status: Acute (3) UTI (urinary tract infection) SNOMED Code(s): 93129494 Code(s): N39.0 - URINARY TRACT INFECTION, SITE NOT SPECIFIED Status: Acute - Problem List Review Problem List Initiated/Reviewed/Updated: Yes - My Orders Last 24 Hours: My Active Orders 08/19/20 12:00 Diltiazem IR [Cardizem] 30 mg PO Q6HR 08/19/20 12:16 Echo Comp wo Cont [US] Urgent 08/19/20 20:00 Aspirin [Halfprin] 81 mg PO DAILY 08/20/20 11:00 Tamsulosin [Flomax] 0.4 mg PO PCBREAKFAST 08/20/20 12:00 Phosphorus #1 [Neutra-Phos] 250 mg PO QID 08/20/20 20:00 CULTURE BLOOD [BC] Stat CULTURE BLOOD [BC] Stat Blood Culture x2 Reflex Set [OM.PC] Stat 08/21/20 05:11 PHOSPHORUS [CHEM] AM - Plan Plan:: Bacteremia- Resume IV fluids, vancomycin, Zosyn. Anaerobic blood culture positive for gram-negative rods, Aerobic blood culture positive for coag neg ative staph suspect a skin contaminant, gram-negative rods and gram-positive cocci in clusters. UTI/PYELONEPHRITIS- Urine culture positive for E. coli. Possible pyelonephritis as minor periphrenic stranding seen on CT abdomen. Continue Vancomycin and Zosyn. A. fib RVR- Resolved. Patent currently in NSR. Patient to continue diltiazem IR 30 every 6 hours. Will adjust to one time oral dosing tomorrow Enlarged Prostate-enlarged prostate noted on CT abdomen, patient does not have symptoms of urinary retention or urinary frequency. Will start patient on Flomax 0.4 mg daily SCD for dvt prophylaxis (low platelet count), IV zofran for nausea and vomiting, Protonix, Tylenol for pain CT ABDO 08-20-20, Intrarenal calculi present bilaterally, no ureteral calculus. No hydronephrosis. Minor perinephric stranding. Enlarged prostate <Mana Ochoa - Last Filed: 08/24/20 15:36> - General Info Subjective Update: I have seen and evaluated the patient. I have discussed findings and treatment plan with resident. I agree with the assessment and plan in the following note - Patient Data Vitals - Most Recent: Last Vital Signs Temp 36 C L 08/21/20 11:39 Pulse 63 08/21/20 11:39 Resp 16 08/21/20 11:39 BP 129/76 08/21/20 11:39 Pulse Ox 97 08/21/20 11:39 Leonardo Results Last 24 Hours: Microbiology 08/19/20 05:39 Aerobic Blood Culture - Final Blood NO GROWTH AFTER 5 DAYS Anaerobic Blood Culture - Final NO GROWTH AFTER 5 DAYS 08/19/20 05:34 Aerobic Blood Culture - Final Blood NO GROWTH AFTER 5 DAYS Anaerobic Blood Culture - Final 08/20/20 20:09 Aerobic Blood Culture - Preliminary Blood - Venous NO GROWTH AFTER 3 DAYS Anaerobic Blood Culture - Preliminary NO GROWTH AFTER 3 DAYS 08/20/20 20:15 Aerobic Blood Culture - Preliminary Blood - Venous - Lab Draw NO GROWTH AFTER 3 DAYS Anaerobic Blood Culture - Preliminary NO GROWTH AFTER 3 DAYS 08/18/20 10:53 Aerobic Blood Culture - Final Blood - Venous NO GROWTH AFTER 5 DAYS Anaerobic Blood Culture - Final Escherichia Coli Med Orders - Current: Current Medications Discontinued Medications Acetaminophen (Acetaminophen 500 Mg Tab) 1,000 mg PO ONETIME ONE Stop: 08/18/20 08:38 Last Admin: 08/18/20 08:43 Dose: 1,000 mg Documented by: Acetaminophen (Acetaminophen 500 Mg Tab) 500 mg PO Q6H PRN PRN Reason: Pain/Fever Last Admin: 08/19/20 15:11 Dose: 500 mg Documented by: Albuterol/Ipratropium (Albuterol/Ipratropium 3.0-0.5 Mg/3 Ml Neb Soln) 3 ml NEB Q4HRRT PRN PRN Reason: Shortness Of Breath/wheezing Aspirin (Aspirin 81 Mg Tab.Ec) 81 mg PO DAILY [facility] Last Admin: 08/21/20 08:25 Dose: 81 mg Documented by: Diltiazem HCl (Diltiazem 25 Mg/5 Ml Sdv) 10 mg IVPUSH ONETIME ONE Stop: 08/19/20 08:16 Last Admin: 08/19/20 08:13 Dose: 10 mg Documented by: Diltiazem HCl (Diltiazem 25 Mg/5 Ml Sdv) 10 mg IVPUSH ONETIME ONE Stop: 08/19/20 09:06 Last Admin: 08/19/20 09:06 Dose: 10 mg Documented by: Diltiazem HCl (Diltiazem 25 Mg/5 Ml Sdv) 20 mg IVPUSH ONETIME ONE Stop: 08/19/20 10:46 Last Admin: 08/19/20 12:16 Dose: Not Given Documented by: Diltiazem HCl (Diltiazem Ir 30 Mg Tab) 30 mg PO Q6HR [facility] Last Admin: 08/21/20 11:37 Dose: 30 mg Documented by: Diltiazem HCl (Diltiazem 25 Mg/5 Ml Sdv) 20 mg IVPUSH ONETIME ONE Stop: 08/20/20 19:32 Last Admin: 08/20/20 20:18 Dose: 20 mg Documented by: Diltiazem HCl (Diltiazem 25 Mg/5 Ml Sdv) 10 mg IVPUSH Q3H PRN PRN Reason: Tachycardia Docusate Sodium (Docusate Sodium 100 Mg Cap) 100 mg PO ONETIME ONE Stop: 08/19/20 22:10 Last Admin: 08/19/20 22:39 Dose: 100 mg Documented by: Lactated Ringer's (Ringers, Lactated) 1,000 mls @ 2,000 mls/hr IV .BOLUS ONE Stop: 08/18/20 09:23 Last Admin: 08/18/20 09:10 Dose: 2,000 mls/hr Documented by: Sodium Chloride (Normal Saline) 1,000 mls @ 999 mls/hr IV STAT ONE Stop: 08/18/20 11:40 Last Admin: 08/18/20 10:58 Dose: 999 mls/hr Documented by: Piperacillin Sod/Tazobactam (Sod 4.5 gm/ Sodium Chloride) 100 mls @ 100 mls/hr IV ONETIME ONE Stop: 08/18/20 11:39 Last Admin: 08/18/20 10:58 Dose: 100 mls/hr Documented by: Vancomycin HCl 2 gm/ Premix 400 mls @ 200 mls/hr IV NOW STA Stop: 08/18/20 12:39 Last Admin: 08/18/20 11:56 Dose: 200 mls/hr Documented by: Pantoprazole Sodium 40 mg/ (Sodium Chloride) 10 mls @ 300 mls/hr IV DAILY [facility] Last Admin: 08/21/20 08:26 Dose: 300 mls/hr Documented by: Lactated Ringer's (Ringers, Lactated) 1,000 mls @ 150 mls/hr IV ASDIRECTED [facility] Last Admin: 08/21/20 04:36 Dose: 200 mls/hr Documented by: Piperacillin Sod/Tazobactam (Sod 3.375 gm/ Sodium Chloride) 50 mls @ 100 mls/hr IV Q8H [facility] Last Admin: 08/19/20 00:01 Dose: 100 mls/hr Documented by: Vancomycin HCl 1.75 gm/ Premix 350 mls @ 175 mls/hr IV Q12H [facility] Last Admin: 08/21/20 07:17 Dose: Not Given Documented by: Magnesium Sulfate (Magnesium Sulfate In Water 2 Gm/50 Ml) 2 gm in 50 mls @ 50 mls/hr IV ONETIME ONE Stop: 08/18/20 23:40 Last Admin: 08/18/20 22:50 Dose: 50 mls/hr Documented by: Piperacillin Sod/Tazobactam (Sod 3.375 gm/ Sodium Chloride) 50 mls @ 100 mls/hr IV Q6H [facility] Last Admin: 08/21/20 11:37 Dose: 100 mls/hr Documented by: Magnesium Sulfate (Magnesium Sulfate In Water 2 Gm/50 Ml) 2 gm in 50 mls @ 50 mls/hr IV ONETIME ONE Stop: 08/19/20 12:07 Last Admin: 08/19/20 12:25 Dose: 50 mls/hr Documented by: Vancomycin HCl 1.75 gm/ Premix 350 mls @ 175 mls/hr IV Q8H [facility] Last Admin: 08/21/20 04:40 Dose: 175 mls/hr Documented by: Iopamidol (Iopamidol 755 Mg/Ml 500 Ml Multipack Bottle) 100 ml IVPUSH ONETIME STA Stop: 08/18/20 12:26 Last Admin: 08/18/20 14:08 Dose: 100 ml Documented by: Iopamidol (Iopamidol 755 Mg/Ml 500 Ml Multipack Bottle) 100 ml IVPUSH ONETIME S TA Stop: 08/20/20 05:59 Last Admin: 08/20/20 05:59 Dose: 100 ml Documented by: Magnesium Oxide (Magnesium Oxide 400 Mg Tab) 800 mg PO ONETIME ONE Stop: 08/20/20 09:01 Last Admin: 08/20/20 09:34 Dose: 800 mg Documented by: Morphine Sulfate (Morphine 10 Mg/Ml Syringe) 1 mg IVPUSH Q4H PRN PRN Reason: Pain (severe 7-10) Stop: 08/19/20 15:28 Ondansetron HCl (Ondansetron 4 Mg/2 Ml Sdv) 4 mg IVPUSH Q4H PRN PRN Reason: Nausea/Vomiting Potassium Chloride (Potassium Chloride 20 Meq Tab.Er) 40 meq PO ONETIME ONE Stop: 08/19/20 11:09 Last Admin: 08/19/20 12:25 Dose: 40 meq Documented by: Potassium Chloride (Potassium Chloride 20 Meq Tab.Er) 40 meq PO ONETIME ONE Stop: 08/20/20 08:05 Last Admin: 08/20/20 09:34 Dose: 40 meq Documented by: Sodium Chloride (Sodium Chloride 0.9% 10 Ml Syringe) 10 ml FLUSH ASDIRECTED PRN PRN Reason: Keep Vein Open Last Admin: 08/18/20 09:10 Dose: 10 ml Documented by: Sodium Chloride (Sodium Chloride 0.9% 2.5 Ml Syringe) 2.5 ml FLUSH ASDIRECTED PRN PRN Reason: Keep Vein Open Last Admin: 08/18/20 09:10 Dose: 2.5 ml Documented by: Sodium Phosphate (Phosphorus #1 250 Mg Tab) 250 mg PO QID [facility] Last Admin: 08/21/20 11:37 Dose: 250 mg Documented by: Tamsulosin HCl (Tamsulosin 0.4 Mg Cap.Er) 0.4 mg PO PCBREAKFAST [facility] Last Admin: 08/21/20 08:25 Dose: 0.4 mg Documented by: Vancomycin HCl (Pharmacy To Dose - Vancomycin) 1 dose .XX ASDIRECTED [facility] - Patient Data Result Diagrams: 08/21/20 05:42 08/21/20 05:42 Leonardo Results Last 24 hrs: Microbiology 08/19/20 05:39 Aerobic Blood Culture - Final Blood NO GROWTH AFTER 5 DAYS Anaerobic Blood Culture - Final NO GROWTH AFTER 5 DAYS 08/19/20 05:34 Aerobic Blood Culture - Final Blood NO GROWTH AFTER 5 DAYS Anaerobic Blood Culture - Final 08/20/20 20:09 Aerobic Blood Culture - Preliminary Blood - Venous NO GROWTH AFTER 3 DAYS Anaerobic Blood Culture - Preliminary NO GROWTH AFTER 3 DAYS 08/20/20 20:15 Aerobic Blood Culture - Preliminary Blood - Venous - Lab Draw NO GROWTH AFTER 3 DAYS Anaerobic Blood Culture - Preliminary NO GROWTH AFTER 3 DAYS 08/18/20 10:53 Aerobic Blood Culture - Final Blood - Venous NO GROWTH AFTER 5 DAYS Anaerobic Blood Culture - Final Escherichia Coli - Problem List & Annotations (1) Sepsis SNOMED Code(s): 99960726 Code(s): A41.9 - SEPSIS, UNSPECIFIED ORGANISM Status: Acute (2) UTI (urinary tract infection) SNOMED Code(s): 44571993 Code(s): N39.0 - URINARY TRACT INFECTION, SITE NOT SPECIFIED Status: Acute (3) Sleep apnea SNOMED Code(s): 12543127 Code(s): G47.30 - SLEEP APNEA, UNSPECIFIED Status: Acute
[2020-08-20] MEDS ORDERED: Diltiazem 25 MG/5 ML SDV IVPUSH ONE (19:31)
[2020-08-21] MEDS: Piperacillin/Tazobactam 3.375 GM in Sodium Chloride 0.9% 50 ML IV SCH ×3 (00:05→11:37)
[2020-08-21] MEDS: Diltiazem IR 30 MG Tab PO SCH ×3 (00:06→11:37)
[2020-08-21] MEDS: Phosphorus #1 250 MG Tab PO SCH ×3 (00:06→11:37)
[2020-08-21] MEDS ORDERED: Diltiazem 25 MG/5 ML SDV IVPUSH PRN (03:15)
[2020-08-21] MEDS: Lactated Ringers 1,000 ML IV SCH (04:36)
[2020-08-21] MEDS: VANCOmycin 1.75 GM/350 ML 1.75 GM in Premix Bag 1 BAG IV SCH ×2 (04:40→07:17)
[2020-08-21 06:37] LABS: BLOOD UREA NITROGEN,BUN 15 mg/dL (7.0-18.0); CHLORIDE,CL 105 mmol/L (98-107); GLUCOSE RANDOM 94 mg/dL (74-106); POTASSIUM,K 3.7 mmol/L (3.5-5.1); SODIUM,NA 140 mmol/L (136-148)
[2020-08-21 06:41] LABS: CARBON DIOXIDE,CO2 24.4 mmol/L (21.0-32.0)
[2020-08-21] MEDS: Aspirin 81 MG Tab.EC PO SCH (08:25)
[2020-08-21] MEDS: Tamsulosin 0.4 MG Cap.ER PO SCH (08:25)
[2020-08-21] MEDS: Pantoprazole 40 MG in Sodium Chloride 0.9% 10 ML IV SCH (08:26)
--- NOTE | 2020-08-21 12:29 | PCM.DCSUM1 ---
<Claus Rodriguez - Last Filed: 08/21/20 15:38> Discharge Summary - Hospital Course Free Text/Narrative:: 54-year-old man was admitted to the medical floor with UTI sepsis. 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 Patient presented to the emergency department on 08-18-20 due to chills, fatigue, Nausea/Vomiting. Patient stated 2 days prior to admission h e was experiencing chills, shaking episodes, sweating. Patient denied chest pain, shortness of breath, dysuria, hematuria, abdominal pain. Lab work in ER, WBC 6.1, platelet 99, D-dimer is elevated at 2.71. Lactic acid is 1.3. CMP reveals elevated BUN at 33 and creatinine of 1.7., CPK is 145, Troponin is negative, BNP is negative, UA 2+ bacteria leukocyte esterase positive Chest x-ray does not reveal any acute cardiopulmonary process. Patient was admitted to the floor started on IV fluids, vancomycin and Zosyn. Blood cultures during admission revealed Anaerobic blood culture positive for g charbel-negative rods, Aerobic blood culture positive for coag negative staph suspect a skin contaminant, gram-negative rods and gram-positive cocci in clusters. Urine culture positive for E. coli. Possible pyelonephritis as minor peripheric stranding seen on CT abdomen. Patient discharged home on oral Levaquin antibiotic. Patient also developed new onset A. fib with RVR which was treated with dilt iazem IR 30 mg every 6 hours. Patient's heart rate on discharge range between 90-110. Patient was asymptomatic denied chest pain, shortness of breath, headaches, lightheadedness, dizziness. Patient discharged home on Cardizem CD 180 mg p.o. daily. Dose to be adjusted at follow-up visit with primary care physician based on heart rate and rhythm. Patient's medication list did show a prescription at some point for phentermine, patient advised to avoid medication due to new onset A. fib. Patient states that he has not been taking medication. CT abdomen also noted a enlarged prostate, patient denied dysuria, hematuria, urinary retention, urinary incontinence during admission. Patient was started on Flomax 0.4 mg daily which may be continued based on recommendation from primary care provider. - Discharge Data Discharge Date: 08/21/20 Discharge Disposition: Home, Self-Care 01 Condition: Good - Referral to Home Health Primary Care Physician: Blake Casillas MD - Discharge Diagnosis/Problem(s) (1) Sepsis SNOMED Code(s): 63529216 ICD Code: A41.9 - SEPSIS, UNSPECIFIED ORGANISM Status: Acute (2) Sleep apnea SNOMED Code(s): 54629154 ICD Code: G47.30 - SLEEP APNEA, UNSPECIFIED Status: Acute (3) UTI (urinary tract infection) SNOMED Code(s): 55728404 ICD Code: N39.0 - URINARY TRACT INFECTION, SITE NOT SPECIFIED Status: Acute - Patient Instructions Diet: Heart Healthy Diet Activity: As Tolerated Showering/Bathing: May Shower Notify Provider of: Fever, Increased Pain, Swelling and Redness Other/Special Instructions: REPORT ANY SIGNS OF DIZZINESS, LIGHTHEADEDNESS, HEADACHES TO YOUR PHYSICIAN. VISIT THE ER IF EXPIERENCING SUDDEN CHEST PAIN, SHORTNESS OF BREATH, HEART PALPATATIONS, DIZZINESS. REVIEW ALL NEW MEDICATIONS AT YOUR NEXT DOCTORS VISIT - Discharge Plan Prescriptions/Med Rec: dilTIAZem HCL [Cardizem Cd] 180 mg PO DAILY #21 cap.er.24h Tamsulosin [Flomax] 0.4 mg PO PCBREAKFAST #10 cap.er Aspirin [Halfprin] 81 mg PO DAILY #21 tab.ec levoFLOXacin [Levaquin] 750 mg PO DAILY #11 tab Home Medications: Home Meds Aspirin [Halfprin] 81 mg PO DAILY #21 tab.ec 08/21/20 [Rx] Tamsulosin [Flomax] 0.4 mg PO PCBREAKFAST #10 cap.er 08/21/20 [Rx] dilTIAZem HCL [Cardizem Cd] 180 mg PO DAILY #21 cap.er.24h 08/21/20 [Rx] levoFLOXacin [Levaquin] 750 mg PO DAILY #11 tab 08/21/20 [Rx] Patient Handouts: Urinary Tract Infection, Adult, [place], Levofloxacin tablets, Tamsulosin capsules, Urosepsis, Adult, Diltiazem Oral Tablets, Aspirin capsules or tablets extended release Referrals: Blake Casillas MD [Primary Care Provider] - 08/27/20 9:45 am - Discharge Summary/Plan Comment DC Time >30 min.: Yes - General Info Date of Service: 08/21/20 Subjective Update: Patient states that he feels good this morning. Denies fever, chills, nausea, vomiting, abdominal pain, chest pain, shortness of breath. - Review of Systems General: Denies: Fever, Chills Pulmonary: Denies: Shortness of Breath, Cough Cardiovascular: Denies: Chest Pain Gastrointestinal: Denies: Abdominal Pain, Nausea, Vomiting Genitourinary: Denies: Dysuria Neurological: Denies: Confusion Psychiatric: Denies: Confusion - Patient Data Vitals - Most Recent: Last Vital Signs Temp 96.8 F L 08/21/20 11:39 Pulse 63 08/21/20 11:39 Resp 16 08/21/20 11:39 BP 129/76 08/21/20 11:39 Pulse Ox 97 08/21/20 11:39 Weight - Most Recent: 164.3 kg I&O - Last 24 hours: Intake & Output 08/20/20 08/21/20 08/21/20 22:59 06:59 14:59 Intake Total 2636 2706 Output Total 1250 Balance 2636 1456 Lab Results - Last 24 hrs: Laboratory Results - last 24 hr 08/21/20 08/21/20 Range/Units 05:42 05:42 WBC 4.01 (4.0-11.0) K/uL RBC 4.05 L (4.50-5.90) M/uL Hgb 12.1 L (13.0-17.0) g/dL Hct 36.2 L (38.0-50.0) % MCV 89.4 (80.0-98.0) fL MCH 29.9 (27.0-32.0) pg MCHC 33.4 (31.0-37.0) g/dL RDW Std Deviation 46.3 (28.0-62.0) fl RDW Coeff of Macario 14 (11.0-15.0) % Plt Count 85 L (150-400) K/uL MPV 11.70 (7.40-12.00) fL Neut % (Auto) 60.9 (48.0-80.0) % Lymph % (Auto) 21.2 (16.0-40.0) % [place] % (Auto) 14.7 (0.0-15.0) % Eos % (Auto) 2.7 (0.0-7.0) % Baso % (Auto) 0.5 (0.0-1.5) % Neut # (Auto) 2.4 (1.4-5.7) K/uL Lymph # (Auto) 0.9 (0.6-2.4) K/uL [place] # (Auto) 0.6 (0.0-0.8) K/uL Eos # (Auto) 0.1 (0.0-0.7) K/uL Baso # (Auto) 0.0 (0.0-0.1) K/uL Nucleated RBC % 0.0 /100WBC Nucleated RBCs # 0 K/uL Sodium 140 (136-148) mmol/L Potassium 3.7 (3.5-5.1) mmol/L Chloride 105 (98-107) mmol/L Carbon Dioxide 24.4 (21.0-32.0) mmol/L BUN 15 (7.0-18.0) mg/dL Creatinine 1.0 (0.8-1.3) mg/dL Est Cr Clr Drug Dosing 99.33 mL/min Estimated GFR (MDRD) > 60.0 ml/min Glucose 94 (74-106) mg/dL Calcium 7.9 L (8.5-10.1) mg/dL Phosphorus 2.6 (2.6-4.7) mg/dL ROSETTA Results - Last 24 hrs: Microbiology 08/18/20 10:53 Aerobic Blood Culture - Preliminary Blood - Venous NO GROWTH AFTER 3 DAYS Anaerobic Blood Culture - Final Escherichia Coli 08/19/20 05:39 Aerobic Blood Culture - Preliminary Blood NO GROWTH AFTER 2 DAYS Anaerobic Blood Culture - Preliminary NO GROWTH AFTER 2 DAYS 08/19/20 05:34 Aerobic Blood Culture - Preliminary Blood NO GROWTH AFTER 2 DAYS Anaerobic Blood Culture - Final 08/18/20 08:45 Aerobic Blood Culture - Final Blood - Venous - Lab Draw Anaerobic Blood Culture - Final 08/18/20 10:08 Urine Culture - Final Urine, Clean Catch Escherichia Coli Med Orders - Current: Current Medications Acetaminophen (Acetaminophen 500 Mg Tab) 500 mg PO Q6H PRN PRN Reason: Pain/Fever Last Admin: 08/19/20 15:11 Dose: 500 mg Documented by: Albuterol/Ipratropium (Albuterol/Ipratropium 3.0-0.5 Mg/3 Ml Neb Soln) 3 ml NEB Q4HRRT PRN PRN Reason: Shortness Of Breath/wheezing Aspirin (Aspirin 81 Mg Tab.Ec) 81 mg PO DAILY [facility] Last Admin: 08/21/20 08:25 Dose: 81 mg Documented by: Diltiazem HCl (Diltiazem Ir 30 Mg Tab) 30 mg PO Q6HR [facility] Last Admin: 08/21/20 11:37 Dose: 30 mg Documented by: Diltiazem HCl (Diltiazem 25 Mg/5 Ml Sdv) 10 mg IVPUSH Q3H PRN PRN Reason: Tachycardia Pantoprazole Sodium 40 mg/ (Sodium Chloride) 10 mls @ 300 mls/hr IV DAILY [facility] Last Admin: 08/21/20 08:26 Dose: 300 mls/hr Documented by: Lactated Ringer's (Ringers, Lactated) 1,000 mls @ 150 mls/hr IV ASDIRECTED [facility] Last Admin: 08/21/20 04:36 Dose: 200 mls/hr Documented by: Piperacillin Sod/Tazobactam (Sod 3.375 gm/ Sodium Chloride) 50 mls @ 100 mls/hr IV Q6H [facility] Last Admin: 08/21/20 11:37 Dose: 100 mls/hr Documented by: Vancomycin HCl 1.75 gm/ Premix 350 mls @ 175 mls/hr IV Q8H [facility] Last Admin: 08/21/20 04:40 Dose: 175 mls/hr Documented by: Ondansetron HCl (Ondansetron 4 Mg/2 Ml Sdv) 4 mg IVPUSH Q4H PRN PRN Reason: Nausea/Vomiting Sodium Chloride (Sodium Chloride 0.9% 10 Ml Syringe) 10 ml FLUSH ASDIRECTED PRN PRN Reason: Keep Vein Open Last Admin: 08/18/20 09:10 Dose: 10 ml Documented by: Sodium Chloride (Sodium Chloride 0.9% 2.5 Ml Syringe) 2.5 ml FLUSH ASDIRECTED PRN PRN Reason: Keep Vein Open Last Admin: 08/18/20 09:10 Dose: 2.5 ml Documented by: Sodium Phosphate (Phosphorus #1 250 Mg Tab) 250 mg PO QID [facility] Last Admin: 08/21/20 11:37 Dose: 250 mg Documented by: Tamsulosin HCl (Tamsulosin 0.4 Mg Cap.Er) 0.4 mg PO PCBREAKFAST [facility] Last Admin: 08/21/20 08:25 Dose: 0.4 mg Documented by: Vancomycin HCl (Pharmacy To Dose - Vancomycin) 1 dose .XX ASDIRECTED [facility] Discontinued Medications Acetaminophen (Acetaminophen 500 Mg Tab) 1,000 mg PO ONETIME ONE Stop: 08/18/20 08:38 Last Admin: 08/18/20 08:43 Dose: 1,000 mg Documented by: Diltiazem HCl (Diltiazem 25 Mg/5 Ml Sdv) 10 mg IVPUSH ONETIME ONE Stop: 08/19/20 08:16 Last Admin: 08/19/20 08:13 Dose: 10 mg Documented by: Diltiazem HCl (Diltiazem 25 Mg/5 Ml Sdv) 10 mg IVPUSH ONETIME ONE Stop: 08/19/20 09:06 Last Admin: 08/19/20 09:06 Dose: 10 mg Documented by: Diltiazem HCl (Diltiazem 25 Mg/5 Ml Sdv) 20 mg IVPUSH ONETIME ONE Stop: 08/19/20 10:46 Last Admin: 08/19/20 12:16 Dose: Not Given Documented by: Diltiazem HCl (Diltiazem 25 Mg/5 Ml Sdv) 20 mg IVPUSH ONETIME ONE Stop: 08/20/20 19:32 Last Admin: 08/20/20 20:18 Dose: 20 mg Documented by: Docusate Sodium (Docusate Sodium 100 Mg Cap) 100 mg PO ONETIME ONE Stop: 08/19/20 22:10 Last Admin: 08/19/20 22:39 Dose: 100 mg Documented by: Lactated Ringer's (Ringers, Lactated) 1,000 mls @ 2,000 mls/hr IV .BOLUS ONE Stop: 08/18/20 09:23 Last Admin: 08/18/20 09:10 Dose: 2,000 mls/hr Documented by: Sodium Chloride (Normal Saline) 1,000 mls @ 999 mls/hr IV STAT ONE Stop: 08/18/20 11:40 Last Admin: 08/18/20 10:58 Dose: 999 mls/hr Documented by: Piperacillin Sod/Tazobactam (Sod 4.5 gm/ Sodium Chloride) 100 mls @ 100 mls/hr IV ONETIME ONE Stop: 08/18/20 11:39 Last Admin: 08/18/20 10:58 Dose: 100 mls/hr Documented by: Vancomycin HCl 2 gm/ Premix 400 mls @ 200 mls/hr IV NOW STA Stop: 08/18/20 12:39 Last Admin: 08/18/20 11:56 Dose: 200 mls/hr Documented by: Piperacillin Sod/Tazobactam (Sod 3.375 gm/ Sodium Chloride) 50 mls @ 100 mls/hr IV Q8H [facility] Last Admin: 08/19/20 00:01 Dose: 100 mls/hr Documented by: Vancomycin HCl 1.75 gm/ Premix 350 mls @ 175 mls/hr IV Q12H [facility] Last Admin: 08/21/20 07:17 Dose: Not Given Documented by: Magnesium Sulfate (Magnesium Sulfate In Water 2 Gm/50 Ml) 2 gm in 50 mls @ 50 mls/hr IV ONETIME ONE Stop: 08/18/20 23:40 Last Admin: 08/18/20 22:50 Dose: 50 mls/hr Documented by: Magnesium Sulfate (Magnesium Sulfate In Water 2 Gm/50 Ml) 2 gm in 50 mls @ 50 mls/hr IV ONETIME ONE Stop: 08/19/20 12:07 Last Admin: 08/19/20 12:25 Dose: 50 mls/hr Documented by: Iopamidol (Iopamidol 755 Mg/Ml 500 Ml Multipack Bottle) 100 ml IVPUSH ONETIME STA Stop: 08/18/20 12:26 Last Admin: 08/18/20 14:08 Dose: 100 ml Documented by: Iopamidol (Iopamidol 755 Mg/Ml 500 Ml Multipack Bottle) 100 ml IVPUSH ONETIME STA Stop: 08/20/20 05:59 Last Admin: 08/20/20 05:59 Dose: 100 ml Documented by: Magnesium Oxide (Magnesium Oxide 400 Mg Tab) 800 mg PO ONETIME ONE Stop: 08/20/20 09:01 Last Admin: 08/20/20 09:34 Dose: 800 mg Documented by: Morphine Sulfate (Morphine 10 Mg/Ml Syringe) 1 mg IVPUSH Q4H PRN PRN Reason: Pain (severe 7-10) Stop: 08/19/20 15:28 Potassium Chloride (Potassium Chloride 20 Meq Tab.Er) 40 meq PO ONETIME ONE Stop: 08/19/20 11:09 Last Admin: 08/19/20 12:25 Dose: 40 meq Documented by: Potassium Chloride (Potassium Chloride 20 Meq Tab.Er) 40 meq PO ONETIME ONE Stop: 08/20/20 08:05 Last Admin: 08/20/20 09:34 Dose: 40 meq Documented by: - Exam General: Reports: Alert, Oriented Lungs: Reports: Clear to Auscultation, Normal Respiratory Effort Cardiovascular: Reports: Regular Rate, Irregular Rhythm GI/Abdominal Exam: Soft, Non-Tender Back Exam: Denies: CVA Tenderness (L), CVA Tenderness (R) Extremities: No Pedal Edema Psy/Mental Status: Reports: Alert <Nando Adkins - Last Filed: 08/23/20 08:13> Discharge Summary - Referral to Home Health Primary Care Physician: Blake Casillas MD - Patient Data Vitals - Most Recent: Last Vital Signs Temp 36 C L 08/21/20 11:39 Pulse 63 08/21/20 11:39 Resp 16 08/21/20 11:39 BP 129/76 08/21/20 11:39 Pulse Ox 97 08/21/20 11:39 ROSETTA Results - Last 24 hrs: Microbiology 08/19/20 05:39 Aerobic Blood Culture - Preliminary Blood NO GROWTH AFTER 4 DAYS Anaerobic Blood Culture - Preliminary NO GROWTH AFTER 4 DAYS 08/19/20 05:34 Aerobic Blood Culture - Preliminary Blood NO GROWTH AFTER 4 DAYS Anaerobic Blood Culture - Final 08/20/20 20:09 Aerobic Blood Culture - Preliminary Blood - Venous NO GROWTH AFTER 2 DAYS Anaerobic Blood Culture - Preliminary NO GROWTH AFTER 2 DAYS 08/20/20 20:15 Aerobic Blood Culture - Preliminary Blood - Venous - Lab Draw NO GROWTH AFTER 2 DAYS Anaerobic Blood Culture - Preliminary NO GROWTH AFTER 2 DAYS 08/18/20 10:53 Aerobic Blood Culture - Preliminary Blood - Venous NO GROWTH AFTER 4 DAYS Anaerobic Blood Culture - Final Escherichia Coli Med Orders - Current: Current Medications Discontinued Medications Acetaminophen (Acetaminophen 500 Mg Tab) 1,000 mg PO ONETIME ONE Stop: 08/18/20 08:38 Last Admin: 08/18/20 08:43 Dose: 1,000 mg Documented by: Acetaminophen (Acetaminophen 500 Mg Tab) 500 mg PO Q6H PRN PRN Reason: Pain/Fever Last Admin: 08/19/20 15:11 Dose: 500 mg Documented by: Albuterol/Ipratropium (Albuterol/Ipratropium 3.0-0.5 Mg/3 Ml Neb Soln) 3 ml NEB Q4HRRT PRN PRN Reason: Shortness Of Breath/wheezing Aspirin (Aspirin 81 Mg Tab.Ec) 81 mg PO DAILY [facility] Last Admin: 08/21/20 08:25 Dose: 81 mg Documented by: Diltiazem HCl (Diltiazem 25 Mg/5 Ml Sdv) 10 mg IVPUSH ONETIME ONE Stop: 08/19/20 08:16 Last Admin: 08/19/20 08:13 Dose: 10 mg Documented by: Diltiazem HCl (Diltiazem 25 Mg/5 Ml Sdv) 10 mg IVPUSH ONETIME ONE Stop: 08/19/20 09:06 Last Admin: 08/19/20 09:06 Dose: 10 mg Documented by: Diltiazem HCl (Diltiazem 25 Mg/5 Ml Sdv) 20 mg IVPUSH ONETIME ONE Stop: 08/19/20 10:46 Last Admin: 08/19/20 12:16 Dose: Not Given Documented by: Diltiazem HCl (Diltiazem Ir 30 Mg Tab) 30 mg PO Q6HR [facility] Last Admin: 08/21/20 11:37 Dose: 30 mg Documented by: Diltiazem HCl (Diltiazem 25 Mg/5 Ml Sdv) 20 mg IVPUSH ONETIME ONE Stop: 08/20/20 19:32 Last Admin: 08/20/20 20:18 Dose: 20 mg Documented by: Diltiazem HCl (Diltiazem 25 Mg/5 Ml Sdv) 10 mg IVPUSH Q3H PRN PRN Reason: Tachycardia Docusate Sodium (Docusate Sodium 100 Mg Cap) 100 mg PO ONETIME ONE Stop: 08/19/20 22:10 Last Admin: 08/19/20 22:39 Dose: 100 mg Documented by: Lactated Ringer's (Ringers, Lactated) 1,000 mls @ 2,000 mls/hr IV .BOLUS ONE Stop: 08/18/20 09:23 Last Admin: 08/18/20 09:10 Dose: 2,000 mls/hr Documented by: Sodium Chloride (Normal Saline) 1,000 mls @ 999 mls/hr IV STAT ONE Stop: 08/18/20 11:40 Last Admin: 08/18/20 10:58 Dose: 999 mls/hr Documented by: Piperacillin Sod/Tazobactam (Sod 4.5 gm/ Sodium Chloride) 100 mls @ 100 mls/hr IV ONETIME ONE Stop: 08/18/20 11:39 Last Admin: 08/18/20 10:58 Dose: 100 mls/hr Documented by: Vancomycin HCl 2 gm/ Premix 400 mls @ 200 mls/hr IV NOW STA Stop: 08/18/20 12:39 Last Admin: 08/18/20 11:56 Dose: 200 mls/hr Documented by: Pantoprazole Sodium 40 mg/ (Sodium Chloride) 10 mls @ 300 mls/hr IV DAILY [facility] Last Admin: 08/21/20 08:26 Dose: 300 mls/hr Documented by: Lactated Ringer's (Ringers, Lactated) 1,000 mls @ 150 mls/hr IV ASDIRECTED [facility] Last Admin: 08/21/20 04:36 Dose: 200 mls/hr Documented by: Piperacillin Sod/Tazobactam (Sod 3.375 gm/ Sodium Chloride) 50 mls @ 100 mls/hr IV Q8H [facility] Last Admin: 08/19/20 00:01 Dose: 100 mls/hr Documented by: Vancomycin HCl 1.75 gm/ Premix 350 mls @ 175 mls/hr IV Q12H [facility] Last Admin: 08/21/20 07:17 Dose: Not Given Documented by: Magnesium Sulfate (Magnesium Sulfate In Water 2 Gm/50 Ml) 2 gm in 50 mls @ 50 mls/hr IV ONETIME ONE Stop: 08/18/20 23:40 Last Admin: 08/18/20 22:50 Dose: 50 mls/hr Documented by: Piperacillin Sod/Tazobactam (Sod 3.375 gm/ Sodium Chloride) 50 mls @ 100 mls/hr IV Q6H [facility] Last Admin: 08/21/20 11:37 Dose: 100 mls/hr Documented by: Magnesium Sulfate (Magnesium Sulfate In Water 2 Gm/50 Ml) 2 gm in 50 mls @ 50 mls/hr IV ONETIME ONE Stop: 08/19/20 12:07 Last Admin: 08/19/20 12:25 Dose: 50 mls/hr Documented by: Vancomycin HCl 1.75 gm/ Premix 350 mls @ 175 mls/hr IV Q8H [facility] Last Admin: 08/21/20 04:40 Dose: 175 mls/hr Documented by: Iopamidol (Iopamidol 755 Mg/Ml 500 Ml Multipack Bottle) 100 ml IVPUSH ONETIME STA Stop: 08/18/20 12:26 Last Admin: 08/18/20 14:08 Dose: 100 ml Documented by: Iopamidol (Iopamidol 755 Mg/Ml 500 Ml Multipack Bottle) 100 ml IVPUSH ONETIME STA Stop: 08/20/20 05:59 Last Admin: 08/20/20 05:59 Dose: 100 ml Documented by: Magnesium Oxide (Magnesium Oxide 400 Mg Tab) 800 mg PO ONETIME ONE Stop: 08/20/20 09:01 Last Admin: 08/20/20 09:34 Dose: 800 mg Documented by: Morphine Sulfate (Morphine 10 Mg/Ml Syringe) 1 mg IVPUSH Q4H PRN PRN Reason: Pain (severe 7-10) Stop: 08/19/20 15:28 Ondansetron HCl (Ondansetron 4 Mg/2 Ml Sdv) 4 mg IVPUSH Q4H PRN PRN Reason: Nausea/Vomiting Potassium Chloride (Potassium Chloride 20 Meq Tab.Er) 40 meq PO ONETIME ONE Stop: 08/19/20 11:09 Last Admin: 08/19/20 12:25 Dose: 40 meq Documented by: Potassium Chloride (Potassium Chloride 20 Meq Tab.Er) 40 meq PO ONETIME ONE Stop: 08/20/20 08:05 Last Admin: 08/20/20 09:34 Dose: 40 meq Documented by: Sodium Chloride (Sodium Chloride 0.9% 10 Ml Syringe) 10 ml FLUSH ASDIRECTED PRN PRN Reason: Keep Vein Open Last Admin: 08/18/20 09:10 Dose: 10 ml Documented by: Sodium Chloride (Sodium Chloride 0.9% 2.5 Ml Syringe) 2.5 ml FLUSH ASDIRECTED PRN PRN Reason: Keep Vein Open Last Admin: 08/18/20 09:10 Dose: 2.5 ml Documented by: Sodium Phosphate (Phosphorus #1 250 Mg Tab) 250 mg PO QID [facility] Last Admin: 08/21/20 11:37 Dose: 250 mg Documented by: Tamsulosin HCl (Tamsulosin 0.4 Mg Cap.Er) 0.4 mg PO PCBREAKFAST [facility] Last Admin: 08/21/20 08:25 Dose: 0.4 mg Documented by: Vancomycin HCl (Pharmacy To Dose - Vancomycin) 1 dose .XX ASDIRECTED [facility] - Free Text/Narrative Note: I have seen and evaluated the patient with the resident. I discussed findings and treatment plan with the resident. I agree with the assessment and plan outlined in the resident's note.
== END 2020-08-21 13:35 | disposition home or self-care (01) | DRG 720 ==
LOC: MW.ED 08:26 → MW.MS 15:22
PROVIDERS: ADMIT Student in an Organized Health Care Education/Training Program; ATTEND Student in an Organized Health Care Education/Training Program
DX: A41.51 Sepsis due to Escherichia coli [E. coli] (principal); N39.0 Urinary tract infection, site not specified; G47.33 Obstructive sleep apnea (adult) (pediatric); E83.42 Hypomagnesemia; Z96.649 Presence of unspecified artificial hip joint; E66.01 Morbid (severe) obesity due to excess calories; N17.9 Acute kidney failure, unspecified; N40.0 Benign prostatic hyperplasia without lower urinary tract symptoms; N20.0 Calculus of kidney; I48.91 Unspecified atrial fibrillation; Z20.822 Contact with and (suspected) exposure to COVID-19; Z85.47 Personal history of malignant neoplasm of testis; Z98.890 Other specified postprocedural states; Z87.39 Personal history of other diseases of the musculoskeletal system and connective tissue; Z68.42 Body mass index [BMI] 45.0-49.9, adult
CPT/HCPCS: 0240U; 36415; 71045; 71045-26; 71275; 71275-26; 74178; 74178-26; 80048; 80053; 80061; 80202; 81001; 82550; 83036; 83605; 83735; 83880; 84100; 84443; 84484; 85025; 85379; 87040; 87077; 87086; 87088; 87186; 93005; 93010; 93306; 96365; 96366; 96367; 99284; 99285-25; A9270-GY; C9113; J2405; J2543; J3370; J3475; J3490; J7030; J7120; Q9967